=== PATIENT | female | born 1945 | race Caucasian/White ===

== ENCOUNTER 2017-04-26 15:52 | Observation (INO) | payer MEDICARE, BC ==
--- NOTE | 2017-04-26 16:36 | RAD ---
AP CHEST: Indication: Chest pain. Comparison: 09-25-06 FINDINGS: There is moderate cardiomegaly. Lungs are clear. No pleural effusion or pneumothorax is evident. No a cute osseous abnormality is evident. IMPRESSION: Stable cardiomegaly. POS: [facility]
[2017-04-26 18:02] LABS: #Basophils 0.1 thou/uL (0.0-0.2); #Eosinphils 0.1 thou/uL (0.0-0.7); #Lymphocytes 2.4 thou/uL (1.20-3.40); #Monocytes 0.9 thou/uL (0.11-0.59); %Basophils 0.4 % (0.0-1.0); %Eosinophils 0.7 % (0.0-10.0); %Lymphocytes 19.4 % (21.0-51.0); Hematocrit 36.5 % (36.0-47.0); Mean Platelet Volume 8.1 fL (7.4-10.4); Red Blood Cell (RBC) Count 4.62 mill/uL (4.20-5.40); White Blood Cell (WBC) Count 12.4 thou/uL (4.8-10.8)
[2017-04-26 18:24] LABS: Lactic Acid - Sepsis 1.8 mmol/L (0.5-2.2)
[2017-04-26 18:28] LABS: ALT (SGPT) 24 U/L (8-55); AST (SGOT) 24 U/L (5-34); Alkaline Phosphatase 60 U/L (40-150); Anion Gap 12 mmol/L (10-20); BUN (Urea Nitrogen) 14 mg/dL (9.8-20.1); Bilirubin, Total 0.3 mg/dL (0.2-1.2); CK (CPK) 51 U/L (29-168); Calc. Creatinine Clearance 0 mL/min (70-130); Calcium 8.7 mg/dL (7.8-10.44); Carbon Dioxide 26 mmol/L (23-31); Chloride 105 mmol/L (98-107); Estimated GFR-MDRD 59; Globulin 2.8 g/dL (2.4-3.5); Lipase 7 U/L (8-78); Protein, Total 6.3 g/dL (6.0-8.3)
[2017-04-26 18:31] LABS: Troponin I 0.051 ng/mL (< 0.028)
[2017-04-26 21:40] LABS: Troponin I 0.071 ng/mL (< 0.028)
[2017-04-26] MEDS ORDERED: Aspirin 325 MG TAB ONE (22:21)
[2017-04-26] MEDS ORDERED: Ondansetron ODT 4 MG TAB SL PRN (23:33)
[2017-04-26] MEDS ORDERED: Ondansetron HCl/PF 4 MG/2 ML Vial IVP PRN ×2 (23:33→23:50)
[2017-04-26] MEDS ORDERED: Acetaminophen 325 MG TAB PO PRN (23:33)
[2017-04-26] MEDS ORDERED: cloNIDine 0.1 MG TAB PO PRN (23:50)
[2017-04-26] MEDS ORDERED: Ondansetron ODT 4 MG TAB PO PRN (23:50)
[2017-04-26] MEDS ORDERED: hydrALAZINE 20 MG/ML VIAL SLOW IVP PRN (23:50)
[2017-04-26] MEDS ORDERED: Acetaminophen 500 MG TAB PO PRN (23:50)
[2017-04-27 00:23] VITALS: BMI 43.4
[2017-04-27] MEDS ORDERED: HYDROcodone/Acetaminophen 5/325 mg Tablet PO PRN (00:23)
[2017-04-27 00:44] LABS: Troponin I 0.058 ng/mL (< 0.028)
[2017-04-27] MEDS ORDERED: Carvedilol 6.25 MG TAB PO SCH ×3 (00:45→09:00)
[2017-04-27] MEDS ORDERED: Zolpidem Tartrate 5 MG TAB PO SCH ×2 (00:45→21:00)
[2017-04-27] MEDS ORDERED: hydrALAZINE 10 MG TAB PO SCH ×2 (00:45→09:00)
[2017-04-27 03:17] LABS: Hematocrit 33.5 % (36.0-47.0); Mean Platelet Volume 7.6 fL (7.4-10.4); Neutrophil 75 % (42-75); Red Blood Cell (RBC) Count 4.26 mill/uL (4.20-5.40); White Blood Cell (WBC) Count 10.3 thou/uL (4.8-10.8)
[2017-04-27 03:29] LABS: Anion Gap 10 mmol/L (10-20); BUN (Urea Nitrogen) 11 mg/dL (9.8-20.1); Calc. Creatinine Clearance 105 mL/min (70-130); Calcium 9.1 mg/dL (7.8-10.44); Carbon Dioxide 29 mmol/L (23-31); Chloride 105 mmol/L (98-107); Cholesterol 129 mg/dl (< 200 Desired); Estimated GFR-MDRD 65; LDL Cholesterol, Calculated 61 mg/dL; Magnesium 1.7 mg/dL (1.6-2.6)
--- NOTE | 2017-04-27 04:33 | HP ---
PRIMARY CARE PHYSICIAN: Dr. Jaffe PRIMARY ENVIRONMENTAL ATTORNEY: Dr. Sukumar Bahena CHIEF COMPLAINT: Chest pain, shortness of breath and fast heartbeat. HISTORY OF PRESENT ILLNESS: This is a 72-year-old female who presents to [facility] via EMS transport from [facility] complaining of chest pain, diaphoresi s and tachycardia. The patient states she had some palpitations and felt faint, presenting to the [facility]. The patient was evaluated with EKG showing supraventricular tachycardia with heart rates in the 150s. The patient received emergent adenosine with correction of the SVT with heart rates de creasing into the 70s and 80s. The patient states she has been compliant with her chronic home blood pressure medications as well as aspirin. The patient does admit to history of coronary disease, sta tus post cardiac stent placements. The patient states she is also taking Coreg chronically which she has not missed any doses. The patient does admit that she was placed on prednisone for approximatel y 30 days secondarily to suspected gout. The patient also admits that she is completing a course of antibiotics with ciprofloxacin for suspected urinary tract problems. The patient denied any specific fever, chills or exposure history or trauma. The patient denies any unilateral weakness, difficulty with speech, or visual disturbance. The patient currently states she feels fine without chest pain or shortness of breath. PAST MEDICAL HISTORY: 1. Hypertension. 2. History of renal lithiasis. 3. Morbid obesity. 4. Question of gout. 5. Gastroesophageal reflux disease. 6. Coronary artery disease status post cardiac stent placement. 7. Parathyroid adenoma status post resection. 8. History of migraines. 9. Depression. PAST SURGICAL HISTORY: 1. Status post tonsillectomy. 2. Status post parathyroidectomy. 3. Status post carpal tunnel release. 4. Status post breast biopsy. 5. Status post right carotid endarterectomy. 6. Status post lithotripsy. 7. Status post cardiac stent placement. 8. Status post cataract removal. 9. Status post back surgery. 10. Status post gastric sleeve. CURRENT MEDICATIONS: 1. Coreg 6.25 mg p.o. t.i.d. 2. Aspirin 81 mg 1 tab p.o. daily. 3. Amlodipine 10 mg 1 tab p.o. daily. 4. Cymbalta 60 mg 1 tab p.o. daily. 5. HCTZ 25 mg 1 tab p.o. daily. 6. Multivitamin 1 tab p.o. daily. 7. Protonix 40 mg p.o. b.i.d. 8. Zocor 40 mg p.o. at bedtime. 9. Ambien 10 mg p.o. at bedtime. The list may not be comprehensive and being confirmed with family members. ALLERGIES: 1. YURI inhibitors. 2. CODEINE. 3. CORN. 4. NEXIUM. FAMILY HISTORY: Father is with history of hypertension and coronary artery disease. Mother is . SOCIAL HISTORY: The Patient is . She is accompanied by her daughter in the hospital. Resid es in [place], [place]. Retired. No tobacco or illicit drug use. Occasional alcohol use. REVIEW OF SYSTEMS: The following complete review of systems was negative, unless otherwise mentioned in the HPI or below: Constitutional: Weight loss or gain, ability to conduct usual activities. Skin: Rash, itching. Eyes: Double vision, pain. ENT/Mouth: Nose bleeding, neck stiffness, pain, tenderness. Cardiovascular: Palpitations, dyspnea on exertion, orthopnea. Respiratory: Shortness of breath, wheezing, cough, hemoptysis, fever or night sweats. Gastrointestinal: Poor appetite, abdominal pain, heartburn, nausea, vomiting, constipation, or diarrhea. Genitourinary: Urgency, frequency, dysuria, nocturia. Musculoskeletal: Pain, swelling. Neurologic/Psychiatric: Anxiety, depression. Allergy/Immunologic: Skin rash, bleeding tendency. PHYSICAL EXAMINATION: VITAL SIGNS ON ADMISSION: Blood pressure 156/68, pulse 87, respiratory rate 20, temperature 98.4 deg zahida Fahrenheit, O2 saturation 97% on room air. GENERAL APPEARANCE: This is a 72-year-old female, alert and oriented x3, pleasant, convers ant, smiling, in no acute distress. HEENT: Pupils are equal, round, and reactive to light and accommodation. Extraocular muscles are in tact. No scleral icterus, no conjunctival injection. Nares patent. OP is clear. Teeth in good rep air. NECK: Supple, no cervical adenopathy, no thyromegaly, no carotid bruits, no JVD appreciated. Cervic al spine with full active and passive range of motion. No meningeal signs appreciated. CHEST: Lungs are clear to auscultation bilaterally with diminished breath sounds in the bases. CARDIOVASCULAR: S1, S2 with distant heart sounds. ABDOMEN: Obese, landmarks difficult to palpate due to patient's body habitus. No rebound or guardin g appreciated. Bowel sounds are positive in all 4 quadrants. EXTREMITIES: Warm and dry with fair turgor. No clubbing, cyanosis or asymmetric edema appreciated. Pulses palpable distally at the dorsalis pedis, posterior tibial, and popliteal arteries bilaterally . Capillary refill less than 2 seconds. NEUROLOGIC: Cranial nerves II-XII are grossly intact. No focal or lateralizing signs appreciated. PERTINENT LABORATORY AND X-RAY FINDINGS: Complete metabolic profile within normal limits. Troponin ranged between 0.051-0.071. CBC showed a white blood cell count 12.4, hemoglobin 11, hematocrit 37, MCV 79, platelet count 267 with normal differential. Portable chest x-ray dated 04/26/2017 showed no acute cardiopulmonary process. EKG dated 04/26/2017 by my interpretation shows supraventricular tac hycardia with rates in the 150s. Normal R-wave progression noted in the precordial leads. Left axis deviation. Voltage criteria consistent with left ventricular hypertrophy. ASSESSMENT AND PLAN: 1. Supraventricular tachycardia. The patient will be observed on the telemetry unit. Initial manag ement included adenosine with return to sinus mechanism with heart rates in the 70s-80s. We will con sult Cardiology Service in the a.m. for any further recommendations. We will need to obtain recent 2 D transthoracic echocardiogram done on an outpatient basis. Check TSH and magnesium level in the a.m . Resume home Coreg and monitor on the telemetry unit. 2. Elevated troponin I. Suspect demand ischemia in the context of supraventricular tachycardia. Co ntinue to monitor troponin I trend. No current evidence to suggest acute coronary syndrome. 3. Coronary artery disease, status post cardiac stent placement x1. Resume aspirin 81 mg daily. conner fasting lipid profile in the a.m. 4. Hypertension. Resume home antihypertensive regimen after confirmation of outpatient regimen. 5. Prophylaxis. Sequential compression devices while in bed. Pepcid 20 mg p.o. b.i.d. 6. Code status is full. Surrogate medical decision maker is the patient's daughter.
[2017-04-27] MEDS ORDERED: Pantoprazole 40 MG GRANULES PACKET PO SCH (09:00)
[2017-04-27] MEDS ORDERED: predniSONE 5 MG TAB PO SCH (09:00)
[2017-04-27] MEDS ORDERED: Hydrochlorothiazide 25 MG TAB PO SCH (09:00)
[2017-04-27] MEDS ORDERED: Famotidine 20 MG TAB PO SCH (09:00)
[2017-04-27] MEDS ORDERED: DULoxetine 60 MG CAP PO SCH (09:00)
[2017-04-27] MEDS ORDERED: Nystatin Powder 15 GM BOT TOP SCH ×2 (10:24→21:00)
[2017-04-27 12:24] VITALS: BP 166/79; TEMP 98.3
--- NOTE | 2017-04-27 16:50 | CON ---
DATE OF CONSULTATION: 04/27/2017 REASON FOR CONSULTATION: Elevated troponin and SVT. HISTORY OF PRESENT ILLNESS: Ms. Cohn is a very pleasant 72-year-old woman who was seen and evalu ated in the past. She has a history of CAD, status post stent placement. She recently underwent a n oninvasive stress in the last 6 months and was negative for ischemia. She states she recently had a monster drink. She also states she has had nasal drainage and has been on decongestants. She developed a tachycardia. She was found in SVT and was cardioverted with tori osine. No chest pain or pressure noted. No other associated symptoms. Her troponin was in the inde terminate range and was subsequently admitted. She is now been trending downward. PAST MEDICAL HISTORY: Hypertension, obesity, CAD status post stent placement, acid reflux, migraine headaches, obesity and renal lithiasis. PAST SURGICAL HISTORY: Tonsillectomy, parathyroidectomy, breast biopsy, carpal tunnel release, carot id endarterectomy, gastric sleeve, and back surgery. CURRENT MEDICATIONS: COREG, ASPIRIN, AMLODIPINE, CYMBALTA, HYDROCHLOROTHIAZIDE, MULTIVITAMIN, PROTON IX, ZOCOR, AMBIEN. ALLERGIES: CODEINE, NEXIUM, and YURI INHIBITOR THERAPY. SOCIAL HISTORY: No current tobacco or alcohol use. REVIEW OF SYSTEMS: Ten point review of systems is reviewed and is as above, otherwise negative. PHYSICAL EXAMINATION: GENERAL: Patient is a pleasant female who is in no acute distress. The patient appears her stated a ge. VITAL SIGNS: 149/70, pulse 72, temperature 98.3. NEUROLOGIC: The patient is alert and oriented times 3 with no focal neurologic deficits. HEENT: Sclerae without icterus. Mouth has moist mucous membranes with normal pallor. NECK: No JVD. Carotid upstroke brisk. No bruits bilaterally. LUNGS: Clear to auscultation with unlabored respirations. BACK: No scoliosis or kyphosis. CARDIAC: Regular rate and rhythm with normal S1 and S2. No S3 or S4 noted. No significant rubs, mu rmurs, thrills, or gallops noted throughout the precordium. PMI is not displaced. There is no raul ternal heave. ABDOMEN: Soft, nontender, nondistended. No peritoneal signs present. No hepatosplenomegaly. No ab normal striae. EXTREMITIES: 2+ femoral and 2+ dorsalis pedis pulses. No cyanosis, clubbing, or edema. SKIN: No gross abnormalities. PERTINENT LABS: Peak troponin 0.07. IMPRESSION: 1. Supraventricular tachycardia. 2. Elevated troponin. RECOMMENDATIONS: Ms. Cohn recently had a noninvasive stress study that was negative for ischemia . Her elevated troponin likely related to supraventricular tachycardia. At this point, would recomm end adding digoxin. From my standpoint, it would be okay to discharge home with outpatient follow up with me and with EP.
--- NOTE | 2017-04-27 17:16 | DIS ---
DATE OF ADMISSION: 04/26/2017 DATE OF DISCHARGE: 04/27/2017 CONDITION AT THE TIME OF DISCHARGE: Stable and improved. DISCHARGE DIAGNOSES: 1. Supraventricular tachycardia, aborted by adenosine. 2. Hypertension. 3. History of nephrolithiasis. 4. Morbid obesity. 5. Gastroesophageal reflux disease. 6. History of coronary artery disease, status post stent placement 5 or 6 years ago. 7. History of parathyroid adenoma status post resection. 8. Migraines. 9. Depression. DISCHARGE MEDICATIONS: Remain the same as admission medication reviewed and reconciled. Please see admission history for further details. PRIMARY CARE PHYSICIAN: Koffi Saavedra CONSULTATION INHOUSE: Include Cardiology, Dr. Bahena. PROCEDURES: None. HISTORY OF PRESENTING ILLNESS: Ms. Cohn is a very pleasant 72-year-old female with past medical history of coronary artery disease and hypertension who presented to the emergency room with complain ts of palpitations and was found to have SVT with heart rate in the 150s. She received emergent tori osine with correction of SVT and was admitted under observation status for further management and car e. Cardiology was consulted. Please see admission history and physical for further details. HOSPITAL COURSE: The patient remained rather asymptomatic throughout the rest of her hospitalization and did not have any recurrence of the symptoms. Dr. Bahena saw the patient and actually release d the patient to go home as no invasive intervention was planned for now. She needs to follow up wit h him as an outpatient. According to Dr. Bahena, she had a normal stress test just few months ago . She did have some mildly elevated troponin, which was thought secondary to the SVT. Dr. Bahena will setup outpatient electrophysiology followup. The patient was given all this information and ve rbalized understanding and is eager to go home. She was seen and examined prior to discharge. PHYSICAL EXAMINATION: VITAL SIGNS: Include temperature 98.3, pulse of 76, respirations 18, saturating 94% on room air, blo od pressure 166/79. GENERAL: No acute distress. CHEST: Clear to auscultation bilaterally. HEART: Rate and rhythm is regular. No edema. LABORATORY EXAMINATION: CBC shows WBC 10.3, platelet count of 241, hemoglobin 10.5. Serum chemistri es unremarkable, troponin 0.071, then 0.058 than 0.050. TSH normal. Lipid panel normal. She will follow with the primary care physician and Dr. Bahena as an outpatient. Discharge plan w as discussed with the patient who verbalized understanding.
[2017-04-27] MEDS ORDERED: Atorvastatin Calcium 20 MG TAB PO SCH (21:00)
--- NOTE | 2017-05-06 14:37 | EKG ---
Test Reason : Blood Pressure : / mmHG Vent. Rate : 088 BPM Atrial Rate : 088 BPM P-R Int : 172 ms QRS Dur : 076 ms QT Int : 380 ms P-R-T Axes : 063 -02 069 degrees QTc Int : 459 ms Normal sinus rhythm Left axis deviation Normal ECG Confirmed by JEET BRANDON DO ([id number]), desk editor KARL GALLARDO ([id number]) on 05/06/2017 2:37:07 PM Referred By: Confirmed By:JEET BRANDON DO
== END 2017-04-27 13:20 | disposition home or self-care (01) ==
LOC: ERS 15:52 → 2SW 23:34
PROVIDERS: ADMIT Family Medicine; ATTEND Family Medicine
DX: I47.1 Supraventricular tachycardia (principal); I10 Essential (primary) hypertension; E66.01 Morbid (severe) obesity due to excess calories; K21.9 Gastro-esophageal reflux disease without esophagitis; I25.10 Atherosclerotic heart disease of native coronary artery without angina pectoris; G43.909 Migraine, unspecified, not intractable, without status migrainosus; F32.9 Major depressive disorder, single episode, unspecified; Z90.89 Acquired absence of other organs; E89.2 Postprocedural hypoparathyroidism; R77.8 Other specified abnormalities of plasma proteins; Z68.41 Body mass index [BMI] 40.0-44.9, adult; Z79.52 Long term (current) use of systemic steroids; Z79.899 Other long term (current) drug therapy; Z88.5 Allergy status to narcotic agent; Z88.8 Allergy status to other drugs, medicaments and biological substances; Z91.018 Allergy to other foods; Z88.2 Allergy status to sulfonamides; Z91.02 Food additives allergy status; Z91.040 Latex allergy status; Z91.011 Allergy to milk products; Z98.84 Bariatric surgery status; Z98.49 Cataract extraction status, unspecified eye; Z95.818 Presence of other cardiac implants and grafts; Z98.890 Other specified postprocedural states; Z87.442 Personal history of urinary calculi; Z82.49 Family history of ischemic heart disease and other diseases of the circulatory system
CPT/HCPCS: 71010; 80048; 80053; 80061; 82550; 82553; 83605; 83690; 83735; 84443; 84484 ×4; 85007; 85025; 85027; 93005; 99285; G0378; 36415

== ENCOUNTER 2017-10-31 12:06 | Outpatient (CLI) | payer MEDICARE, BC | END 2017-10-31 12:07 | disposition home or self-care (01) | LOC: BICMRI 12:06 | PROVIDERS: ATTEND Psychiatry & Neurology Neurology | DX: G31.1 Senile degeneration of brain, not elsewhere classified (principal); I67.82 Cerebral ischemia | CPT/HCPCS: 70553; 82565 ==

== ENCOUNTER 2018-01-09 13:58 | Outpatient (CLI) | payer MEDICARE, BC | END 2018-01-09 13:59 | disposition home or self-care (01) | LOC: BICMAMMO 13:58 | PROVIDERS: ATTEND Internal Medicine | DX: Z12.31 Encounter for screening mammogram for malignant neoplasm of breast (principal) | CPT/HCPCS: 77063; 77067 ==

== ENCOUNTER 2018-02-01 08:08 | Outpatient (CLI) | payer MEDICARE, BC | END 2018-02-01 08:09 | disposition home or self-care (01) | LOC: BICRAD 08:08 | PROVIDERS: ATTEND Allergy & Immunology Allergy | DX: M71.551 Other bursitis, not elsewhere classified, right hip (principal); M71.552 Other bursitis, not elsewhere classified, left hip; M71.811 Other specified bursopathies, right shoulder; M06.9 Rheumatoid arthritis, unspecified; M19.032 Primary osteoarthritis, left wrist; M19.041 Primary osteoarthritis, right hand; Z79.899 Other long term (current) drug therapy ==

== ENCOUNTER 2018-02-14 10:59 | Outpatient (CLI) | payer MEDICARE, BC ==
--- NOTE | 2018-02-14 11:45 | RAD ---
LEFT KNEE TWO VIEWS: History: Left knee pain. FINDINGS: Degenerative changes are present, most prominent in the patellofemoral compartment. Chondrocalcinosis is present. No fracture or dislocation or bony destruction is identified. IMPRESSION: Left knee osteoarthritis. POS: [facility]
--- NOTE | 2018-02-14 11:48 | RAD ---
LEFT SHOULDER THREE VIEWS: History: Injury. Pain. FINDINGS: No fracture. No malalignment. Mild widening of the acromioclavicular joint. IMPRESSION: 1. No acute fracture or malalignment. 2. Mild widening of the acromioclavicular joint likely sequella of chronic distal clavicular osteolys is, an over use syndrome. POS: [facility]
--- NOTE | 2018-02-14 11:52 | RAD ---
RIGHT KNEE TWO VIEWS: History: Right knee pain. FINDINGS: Degenerative changes are seen manifested by osteophyte formation and joint space narrowing predominat andreina in the patellofemoral and medial tibiofemoral compartments. Chondrocalcinosis is present. No frac ture, dislocation, or bony destruction is identified. IMPRESSION: Right knee osteoarthritis. POS: [facility]
--- NOTE | 2018-02-14 14:22 | RAD ---
RIGHT SHOULDER 3 VIEWS: Date: 02/14/18 HISTORY: Pain. COMPARISON: None. FINDINGS: No acute fracture or malalignment. There is ossification of the superior acromioclavicular ligament. There are subcortical cysts of the greater tuberosity. Visualized ribs are unremarkable. IMPRESSION: 1. Moderate degenerative changes of acromioclavicular joint with ossification of the superior acromi oclavicular ligament can be source of patient's pain. 2 Subcortical cysts of the greater tuberosity footplate suggests rotator cuff arthropathy. POS: [facility]
== END 2018-02-14 11:00 | disposition home or self-care (01) ==
LOC: BICRAD 10:59
PROVIDERS: ATTEND Allergy & Immunology
DX: M25.561 Pain in right knee (principal); M25.562 Pain in left knee; M25.511 Pain in right shoulder; M25.512 Pain in left shoulder; M17.0 Bilateral primary osteoarthritis of knee; M19.011 Primary osteoarthritis, right shoulder

== ENCOUNTER 2018-03-16 08:55 | Outpatient (CLI) | payer MEDICARE, BC ==
--- NOTE | 2018-03-16 10:20 | RAD ---
RADIOGRAPH ABDOMEN TWO VIEWS: 03/16/2018 HISTORY: A 73-year-old female with other intestinal obstruction, unspecified as to partial versus complete obstruction. The patient states that she swallowed an intestinal capsule more than one week ago, which has not yet passed. FINDINGS: There are surgical clips both to the right and to the left in the abdomen. There is no evidence of p neumoperitoneum. There are no differential air-fluid levels. There are multiple borderline dilated air-filled small bowel loops scattered throughout the abdominal cavity. There is some gas in a nondi lated colon. There is a moderate amount of colonic stool. No other radiopaque foreign body is visua lized. IMPRESSION: 1. The capsule is not present. 2. nonspecific bowel gas pattern 3. evidence of prior abdominal surgeries POS: [facility]
== END 2018-03-16 08:56 | disposition home or self-care (01) ==
LOC: BICRAD 08:55
PROVIDERS: ATTEND Internal Medicine Gastroenterology
DX: K56.699 Other intestinal obstruction unspecified as to partial versus complete obstruction (principal); Z98.890 Other specified postprocedural states
CPT/HCPCS: 74019

== ENCOUNTER 2018-05-18 22:05 | Observation (INO) | payer MEDICARE, BC ==
[2018-05-18] MEDS ORDERED: Nitroglycerin 2% Ointment 1 INCH/1 GM Packet ONE (22:45)
[2018-05-18] MEDS ORDERED: Furosemide 40 MG/4 ML VIAL ONE (22:45)
[2018-05-18] MEDS ORDERED: Aspirin Chewable 81 MG TAB ONE (22:50)
[2018-05-18 22:52] LABS: #Basophils 0.1 thou/uL (0.0-0.2); #Eosinphils 0.2 thou/uL (0.0-0.7); #Lymphocytes 2.4 thou/uL (1.20-3.40); #Monocytes 0.9 thou/uL (0.11-0.59); #Neutrophils 5.8 thou/uL (1.40-6.50); %Basophils 0.7 % (0.0-1.0); %Eosinophils 2.1 % (0.0-10.0); %Lymphocytes 25.8 % (21.0-51.0); %Monocytes 9.8 % (0.0-10.0); %Neutrophils 61.6 % (42.0-75.0); Hemoglobin 12.6 g/dL (12.0-16.0); Mean Corpuscular HGB CONC 33.1 g/dL (32.0-36.0); Mean Corpuscular Hemoglobin 30.9 pg (27.0-31.0); Mean Corpuscular Volume 93.5 fL (78.0-98.0); Mean Platelet Volume 8.2 fL (7.4-10.4); Platelet Count 205 thou/uL (130-400); RBC Distribution Width 13.4 % (11.5-14.5); Red Blood Cell (RBC) Count 4.07 mill/uL (4.20-5.40); White Blood Cell (WBC) Count 9.4 thou/uL (4.8-10.8)
--- NOTE | 2018-05-18 23:02 | RAD ---
FRONTAL VIEW CHEST: 05/18/18 COMPARISON: 04/26/17. INDICATION: Edema, diaphoresis, dizziness, and nausea. FINDINGS: The cardiac silhouette is prominent, stable. No consolidation, effusion or discrete pneumothorax. The re are leads overlying the chest limiting visualization. IMPRESSION: Enlarged cardiac silhouette. No lobar consolidation. POS: [facility]
[2018-05-18 23:13] LABS: ALT (SGPT) 12 U/L (8-55); AST (SGOT) 14 U/L (5-34); Albumin 3.4 g/dL (3.4-4.8); Alkaline Phosphatase 58 U/L (40-150); Anion Gap 10 mmol/L (10-20); BUN (Urea Nitrogen) 16 mg/dL (9.8-20.1); Bilirubin, Total 0.3 mg/dL (0.2-1.2); CK (CPK) 53 U/L (29-168); Calc. Creatinine Clearance 0 mL/min (70-130); Calcium 8.7 mg/dL (7.8-10.44); Carbon Dioxide 29 mmol/L (23-31); Chloride 102 mmol/L (98-107); Estimated GFR-MDRD 61; Globulin 2.6 g/dL (2.4-3.5); Glucose 108 mg/dL (83-110); Lipase 11 U/L (8-78); Potassium 3.4 mmol/L (3.5-5.1); Sodium 138 mmol/L (136-145)
[2018-05-18] MEDS ORDERED: Metoclopramide HCl 10 MG/2 ML VIAL ONE (23:43)
[2018-05-18] MEDS ORDERED: diphenhydrAMINE 50 MG/ML VIAL ONE (23:43)
[2018-05-18] MEDS ORDERED: Piperacillin/Tazobactam 4.5 GM VIAL ONE (23:43)
[2018-05-19] MEDS ORDERED: Acetaminophen 325 MG TAB ONE (02:03)
[2018-05-19 02:38] LABS: Troponin I Less than 0.010 ng/mL (< 0.028)
[2018-05-19 06:08] LABS: Troponin I 0.011 ng/mL (< 0.028)
--- NOTE | 2018-05-19 10:00 | PDOC.EVN ---
Event Note - Event Note Event Note: [facility] #[id number] [facility] DICTATED #[id number]
--- NOTE | 2018-05-19 15:59 | HP ---
CHIEF COMPLAINT: Chest pain and lower extremity cellulitis. HISTORY OF PRESENT ILLNESS: This is a 73-year-old female who has been presented to the ER because of lower extremity discomfort as well as some chest pain. The patient states that everything started approximately a day ago and the cellulitis started approximately 2 to 3 days ago. The patient denies any nausea, vomiting, diarrhea, constipation, fevers, chills, or shortness of breath. The patient states that she otherwise has been compliant with all of her medication. Has a past medical history of hypertension, depression, hyperlipidemia, and heart failure. The patient states that she could not handle the pain, so came to the ER. No other associated symptoms or complaints. No alleviating or aggravating factors. The patient is seen and examined in the ER. No family at bedside. All questions answered. REVIEW OF SYSTEMS: All systems reviewed, pertinent positives in HPI, otherwise negative. ALLERGIES: PLEASE SEE LIST ON JUL. HOME MEDICATIONS: See JUL. PAST MEDICAL HISTORY: Hypertension, hyperlipidemia, heart failure. FAMILY HISTORY: Noncontributory. SOCIAL HISTORY: Denies any smoking or drinking. PHYSICAL EXAMINATION: VITAL SIGNS: Blood pressure 112/88, respiratory rate of 18, temperature of 98, and O2 saturation 98%. GENERAL: The patient is lying in bed comfortably with the CPAP machine on. HEENT: Pupils are equal, round, react to light and accommodation. Extraocular muscles intact. Normocephalic, atraumatic. NECK: Supple. Nontender. Mobile thyroid noted. CARDIOVASCULAR: Regular rate and rhythm. S1, S2. No murmurs, rubs, or gallops appreciated. PULMONARY: Clear to auscultation bilaterally. No respiratory distress. ABDOMEN: Positive bowel sounds. Soft, nontender. EXTREMITIES: 2+ peripheral pulses. 1+ pitting edema in bilateral lower extremities. Cellulitis in bilateral lower extremities, tracking up to the mid go region. Erythema noted bilaterally as well as some warmth on both legs. LABORATORY DATA: CBC normal. BMP normal. ASSESSMENT: 1. Cellulitis. 2. Chest pain. 3. Sleep apnea. 4. Hypertension. 5. Lower extremity edema. 6. Hyperlipidemia. PLAN: At this point, I will bring the patient to the hospital service, start the patient on antibiotics as well as rule out ACS. If the patient is feeling well over the morning and once the ACS has been ruled out, we will probably switch over to oral antibiotics with Augmentin and discharge with a 7-day course, have the patient follow up outpatient with her PCP for further management and care if the patient is feeling well at the point of time of discharge. Case and plan discussed with the patient at length. She understands and agrees to this plan. Job ID: [id number]
--- NOTE | 2018-05-20 03:14 | DIS ---
DATE OF ADMISSION: 05/19/2018 DATE OF DISCHARGE: 05/19/2018 ADMITTING DIAGNOSES: 1. Chest pain. 2. Cellulitis. 3. Edema. 4. Heart failure. 5. Hyperlipidemia. 6. Hypertension. DISCHARGE DIAGNOSES: 1. Chest pain, resolved, noncardiac. 2. Cellulitis, improving. 3. Edema. 4. Heart failure. 5. Hypertension. HOSPITAL COURSE: A 73-year-old female who was seen in the ER earlier the night prior admitted past midnight to the Hospital Service team due to cellulitis of lower extremity swelling associated with chest discomfort. Patient had ACS ruled out. Received IV antibiotics 1 dose in the ER and felt significantly better. Patient's WBC count was normal. Was afebrile and feeling well. Cellulitis had tracked down significantly lower than what it was the night prior which was noted by demarcation of her skin. Case and plan discussed the patient at length. Patient was told that she could have oral antibiotics outpatient and follow up with primary care for further management and care. DISPOSITION: Home. FOLLOWUP: Follow up with PCP in one week. MEDICATIONS: Resumed Augmentin, prescription given. Case and plan discussed with patient at length. She understood and agreed to this plan. Job ID: [id number]
--- NOTE | 2018-05-31 17:03 | EKG ---
Test Reason : Blood Pressure : / mmHG Vent. Rate : 075 BPM Atrial Rate : 075 BPM P-R Int : 172 ms QRS Dur : 072 ms QT Int : 406 ms P-R-T Axes : 054 -08 055 degrees QTc Int : 453 ms Normal sinus rhythm with sinus arrhythmia Septal infarct , age undetermined Abnormal ECG Confirmed by ALMA FRAZIER, JEET ([id number]), high speed printer operator KARL GALLARDO ([id number]) on 05/31/2018 5:02:45 PM Referred By: Confirmed By:JEET MARQUEZ MD
== END 2018-05-19 12:05 | disposition home or self-care (01) ==
LOC: ERS 22:05 → ERHOLD 22:10
PROVIDERS: ADMIT Internal Medicine; ATTEND Internal Medicine
DX: R07.89 Other chest pain (principal); L03.116 Cellulitis of left lower limb; L03.115 Cellulitis of right lower limb; I11.0 Hypertensive heart disease with heart failure; I50.9 Heart failure, unspecified; E78.5 Hyperlipidemia, unspecified; G47.30 Sleep apnea, unspecified; F32.9 Major depressive disorder, single episode, unspecified; Z88.8 Allergy status to other drugs, medicaments and biological substances; Z88.5 Allergy status to narcotic agent; Z91.018 Allergy to other foods; Z88.2 Allergy status to sulfonamides; Z91.040 Latex allergy status; Z79.52 Long term (current) use of systemic steroids; Z79.2 Long term (current) use of antibiotics; Z79.899 Other long term (current) drug therapy
CPT/HCPCS: 71045; 80053; 82550; 83690; 83880; 84484 ×3; 85025; 93005; 96365; 96367; 96375; 99285; G0378; 36415; J1200; J1940; J2543; J2765; J3370

== ENCOUNTER 2018-06-06 14:22 | Outpatient (CLI) | payer MEDICARE, BC ==
[~2018-06-06 14:22] MED LIST: Iopamidol 370 76% 100 ML VIAL ONE
--- NOTE | 2018-06-06 15:36 | CT ---
CONTRAST ENHANCED CT IMAGES OF THE ABDOMEN AND PELVIS 06/06/18 HISTORY: Chronic diarrhea. Contrast enhanced CT images of the abdomen and pelvis is obtained after the administration of IV and oral contrast. Images demonstrate extensive mitral annular calcifications. Atherosclerotic calcifications seen in the abdominal aorta. The patient has had gastric staple lines present. The lung bases are unremarkable. No evidence of free intraperitoneal air seen. The liver, and spleen are unremarkable. The gallbladder has been surgically removed. Adrenal glands and pancreas are unremarkable. Bilateral renal cortical cysts seen, larger on the left than the right. Small nonobstructing mid and lower pole left renal calculi also seen. Atherosclerotic calcifications seen in the abdominal aorta and iliac arteries. There is a small umbilical hernia. Bilateral renal arteries calcified plaque is seen. No dilated loops of small bowel or colon seen. IMPRESSION: 1. Gastric stapling with surgical changes. 2. Bilateral nonobstructing renal calculi. 3. Renal cortical cysts. 4. Multilevel lumbar disc degenerative changes. 5. Aortic and renal artery calcifications. POS: [facility]
== END 2018-06-06 14:23 | disposition home or self-care (01) ==
LOC: BICCT 14:22
PROVIDERS: ATTEND Physician Assistant Medical
DX: K56.699 Other intestinal obstruction unspecified as to partial versus complete obstruction (principal); D50.0 Iron deficiency anemia secondary to blood loss (chronic); K52.9 Noninfective gastroenteritis and colitis, unspecified; R11.2 Nausea with vomiting, unspecified; I70.1 Atherosclerosis of renal artery; N28.1 Cyst of kidney, acquired; N20.0 Calculus of kidney; M47.816 Spondylosis without myelopathy or radiculopathy, lumbar region; Z98.890 Other specified postprocedural states
CPT/HCPCS: 74177; Q9967

== ENCOUNTER 2018-12-11 13:58 | Outpatient (CLI) | payer MEDICARE, BC ==
--- NOTE | 2018-12-11 14:52 | RAD ---
XR Foot Lt 3 View STANDARD History: Primary generalized osteoarthritis Comparison: None. Findings: No acute fracture or malalignment. Mild interphalangeal joint space narrowing. Large planta r calcaneal spur as well as ossification along the lateral plantar longitudinal ligament. Mild soft tissue swelling. Impression: No acute osseous abnormality. Chronic findings.
--- NOTE | 2018-12-11 14:58 | RAD ---
XR Foot Rt 3 View STANDARD History: Generalized osteoarthritis Comparison: None. Findings: No acute fracture or malalignment. Large talar neck spur. Bones are demineralized. There are calcifications along the short plantar ligament and long plantar ligament. Small plantar ca lcaneal spur. Degenerative changes of the ankle joint. Mild midfoot degenerative changes. Impression: Chronic findings. No acute osseous abnormality.
--- NOTE | 2018-12-11 15:17 | RAD ---
RIGHT ANKLE THREE VIEWS: 12/11/18 HISTORY: Primarily generalized osteoarthritis, right ankle pain. FINDINGS/IMPRESSION: No fracture, dislocation or bony destruction is seen. A small plantar calcaneal spur is present. POS: [facility]
--- NOTE | 2018-12-11 15:18 | RAD ---
LEFT ANKLE THREE VIEWS: 12/11/18 HISTORY: Primarily generalized osteoarthritis. Left ankle pain. FINDINGS/IMPRESSION: No fracture, dislocation or bony destructions seen. The ankle mortise is maintained. There is small p lantar calcaneal spurs present. POS: [facility]
--- NOTE | 2018-12-11 15:21 | RAD ---
LEFT SHOULDER THREE VIEWS: 12/11/18 HISTORY: Other specified bursopathies, left shoulder. Left shoulder pain. Comparison made with exam of 02/14/18. Mild widening of the acromioclavicular joint is stable. 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 No acute fracture, dislocation, or bony destruction is seen. IMPRESSION: Stable exam. POS: [facility]
--- NOTE | 2018-12-11 15:23 | RAD ---
RIGHT SHOULDER THREE VIEWS: HISTORY: Right shoulder pain. Other specific bursopathies, right shoulder. COMPARISON: 02/14/2018 FINDINGS: Moderate degenerative changes of the acromioclavicular joint are again seen. There is ossification o f the superior acromioclavicular ligament. Changes of rotator cuff arthropathy again seen, suggested by subcortical cysts or the greater tuberos ity footplate. No acute fracture, dislocation, or bony destruction is seen. IMPRESSION: Stable examination. POS: [facility]
== END 2018-12-11 13:59 | disposition home or self-care (01) ==
LOC: BICRAD 13:58
PROVIDERS: ATTEND Allergy & Immunology Allergy
DX: M19.011 Primary osteoarthritis, right shoulder (principal); M19.012 Primary osteoarthritis, left shoulder; M19.071 Primary osteoarthritis, right ankle and foot; M19.072 Primary osteoarthritis, left ankle and foot; M71.811 Other specified bursopathies, right shoulder; M71.812 Other specified bursopathies, left shoulder; M71.551 Other bursitis, not elsewhere classified, right hip; M71.552 Other bursitis, not elsewhere classified, left hip; M06.9 Rheumatoid arthritis, unspecified; R11.2 Nausea with vomiting, unspecified; Z79.899 Other long term (current) drug therapy

== ENCOUNTER 2019-01-09 10:01 | Outpatient (CLI) | payer MEDICARE, BC | END 2019-01-09 10:02 | disposition home or self-care (01) | PROVIDERS: ATTEND Physician Assistant Medical | DX: R13.10 Dysphagia, unspecified (principal); R63.3 Feeding difficulties | CPT/HCPCS: 74230 ==

== ENCOUNTER 2019-03-12 18:22 | Emergency (ER) | payer MEDICARE, BC ==
[2019-03-12] MEDS ORDERED: Morphine 4 MG/ML VIAL ONE (18:46)
[2019-03-12] MEDS ORDERED: Ondansetron PF 4 MG/2 ML Vial ONE (18:46)
[2019-03-12 19:21] LABS: #Eosinphils 0.1 thou/uL (0.0-0.7); #Lymphocytes 1.5 thou/uL (1.20-3.40); #Monocytes 0.7 thou/uL (0.11-0.59); #Neutrophils 6.2 thou/uL (1.40-6.50); %Basophils 0.4 % (0.0-1.0); %Eosinophils 1.6 % (0.0-10.0); %Lymphocytes 17.9 % (21.0-51.0); %Neutrophils 72.2 % (42.0-75.0); Hemoglobin 11.7 g/dL (12.0-16.0); Mean Corpuscular HGB CONC 32.8 g/dL (32.0-36.0); Mean Corpuscular Hemoglobin 30.9 pg (27.0-31.0); Mean Platelet Volume 8.2 fL (7.4-10.4); Platelet Count 223 thou/uL (130-400); RBC Distribution Width 13.9 % (11.5-14.5); White Blood Cell (WBC) Count 8.6 thou/uL (4.8-10.8)
[2019-03-12 19:46] LABS: ALT (SGPT) 9 U/L (8-55); AST (SGOT) 19 U/L (5-34); Albumin 3.5 g/dL (3.4-4.8); Alkaline Phosphatase 66 U/L (40-110); Anion Gap 11 mmol/L (10-20); BUN (Urea Nitrogen) 11 mg/dL (9.8-20.1); Bilirubin, Total 0.2 mg/dL (0.2-1.2); Calc. Creatinine Clearance 0 mL/min (70-130); Calcium 9.2 mg/dL (7.8-10.44); Carbon Dioxide 27 mmol/L (23-31); Chloride 105 mmol/L (98-107); Estimated GFR-MDRD 67; Globulin 2.7 g/dL (2.4-3.5); Glucose 96 mg/dL (83-110); Lipase 7 U/L (8-78); Potassium 4.3 mmol/L (3.5-5.1); Protein, Total 6.2 g/dL (6.0-8.3); Sodium 139 mmol/L (136-145)
[2019-03-12 20:46] LABS: Bilirubin Small (Negative); Blood, Urine Negative (Negative); Glucose, Urine (Dipstick) 100 mg/dL (Negative); Leukocyte Trace (Negative); Nitrite Positive (Negative); Protein, Urine (Dipstick) 30 mg/dL (Neg-Trace)
[2019-03-12 20:47] LABS: Clarity Hazy (Clear)
[2019-03-12 20:51] LABS: RBC/HPF 0-3 HPF (0-3)
[2019-03-12 21:00] LABS: Bacteria/HPF 4+ HPF (None Seen)
[2019-03-12] MEDS ORDERED: cefTRIAXone\\ROCEPHIN 1 GM VIAL ONE (21:06)
== END 2019-03-12 22:05 | disposition home or self-care (01) ==
LOC: ERS 18:22
DX: N39.0 Urinary tract infection, site not specified (principal); I10 Essential (primary) hypertension; Z79.899 Other long term (current) drug therapy; Z79.82 Long term (current) use of aspirin
CPT/HCPCS: 80053; 81003; 81015; 83690; 85025; 93005; 96361; 96365; 96375; J0696; J2270; J2405

== ENCOUNTER 2019-03-14 13:54 | Inpatient (IN) | payer MEDICARE, BC ==
[~2019-03-14 13:54] MED LIST changes: +ISOVUE-370 76%-LOCM 1 ML ONE; -Iopamidol 370 76% 100 ML VIAL ONE
[2019-03-14] MEDS ORDERED: Ondansetron PF 4 MG/2 ML Vial ONE (14:31)
[2019-03-14 14:37] LABS: #Eosinphils 0.1 thou/uL (0.0-0.7); #Lymphocytes 1.4 thou/uL (1.20-3.40); #Monocytes 0.7 thou/uL (0.11-0.59); #Neutrophils 8.6 thou/uL (1.40-6.50); %Basophils 0.1 % (0.0-1.0); %Eosinophils 0.9 % (0.0-10.0); %Lymphocytes 13.1 % (21.0-51.0); %Monocytes 6.5 % (0.0-10.0); %Neutrophils 79.4 % (42.0-75.0); Hemoglobin 12.9 g/dL (12.0-16.0); Mean Corpuscular HGB CONC 32.7 g/dL (32.0-36.0); Mean Corpuscular Hemoglobin 30.9 pg (27.0-31.0); Mean Corpuscular Volume 94.6 fL (78.0-98.0); Mean Platelet Volume 7.9 fL (7.4-10.4); Platelet Count 240 thou/uL (130-400); RBC Distribution Width 13.9 % (11.5-14.5); Red Blood Cell (RBC) Count 4.17 mill/uL (4.20-5.40); White Blood Cell (WBC) Count 10.8 thou/uL (4.8-10.8)
[2019-03-14] MEDS ORDERED: Morphine 4 MG/ML VIAL ONE ×2 (14:52→17:11)
[2019-03-14] MEDS ORDERED: cefTRIAXone\\ROCEPHIN 1 GM VIAL ONE (14:52)
[2019-03-14 14:58] LABS: ALT (SGPT) 8 U/L (8-55); AST (SGOT) 14 U/L (5-34); Albumin 3.7 g/dL (3.4-4.8); Alkaline Phosphatase 75 U/L (40-110); Anion Gap 15 mmol/L (10-20); BUN (Urea Nitrogen) 10 mg/dL (9.8-20.1); Bilirubin, Total 0.3 mg/dL (0.2-1.2); CK (CPK) 35 U/L (29-168); Calc. Creatinine Clearance 0 mL/min (70-130); Calcium 9.1 mg/dL (7.8-10.44); Carbon Dioxide 24 mmol/L (23-31); Chloride 105 mmol/L (98-107); Estimated GFR-MDRD 72; Globulin 2.2 g/dL (2.4-3.5); Glucose 137 mg/dL (83-110); Lipase 8 U/L (8-78); Potassium 3.8 mmol/L (3.5-5.1); Protein, Total 5.9 g/dL (6.0-8.3); Sodium 140 mmol/L (136-145)
--- NOTE | 2019-03-14 15:31 | CT ---
CT ABDOMEN AND PELVIS WITH IV CONTRAST 03/14/2019 CLINICAL INFORMATION: Abdominal pain and tachycardia. Nausea and vomiting. COMPARISON: 06/06/2018 Technique: Multiple contiguous axial CT images are obtained through the abdomen and pelvis with IV contrast. Cor onal reformatted images are provided. FINDINGS: Lower Chest: Calcified mitral valve annulus is again present. Minimal atelectasis is present at the l eft lung base. There is calcified granulomata right lung base. Vessels: Vascular calcifications are seen in the abdominal aorta and involving the iliac arteries. Abdomen: Portal vein:Patent Gallbladder: Surgically absent. Liver: Small subcentimeter too small to characterize hypodense lesion is again seen in the inferior a spect posterior segment right hepatic lobe with a punctate low-density focus seen in the anterior aspect lateral segment left hepatic lobe also stable. Spleen: within normal limits. Pancreas: within normal limits. Adrenals: within normal limits. Kidneys: Subcentimeter too small to characterize hypodense lesions in each kidney are again seen with stable inferior pole left renal cysts again noted. There are stable nonobstructing bilateral renal calculi. Bowel: Postsurgical changes of the stomach are again noted. Dilated fluid-filled loops of small bowel are seen in the abdomen measuring up to 3.9 cm. There is edema within the adjacent mesentery. There is feculent type material and loops of small bowel just distal to the dilated fluid-filled loop s of small bowel. This could be related to final bezoar and developing partial small bowel obstruction. No bowel wall thickening is seen. There is no free intraperitoneal gas or fluid. Colonic diverticulosis is present. Appendix: Not visualized Peritoneum: No ascites or free air; no fluid collection. Mesentery and Retroperitoneum: Mildly prominent lymph node is seen within the mesentery at the level of the edematous changes measuring 1.3 cm in short axis dimension. Abdominal Wall: Small fat-containing umbilical hernia is noted. Pelvis: Reproductive Organs: Evidence of hysterectomy. Pelvis within normal limits. Bladder: Decompressed and not evaluated. Bones: Hemangioma is seen in the L3 vertebral body with degenerative changes again seen within the lawrence mbar spine. There is bilateral hip osteoarthritis. IMPRESSION: 1. Developing partial small bowel obstruction with dilated loops of fluid-filled small bowel seen in the midabdomen measuring 3.9 cm. Just distal to loops of dilated fluid-filled small bowel is feculent type material within loops of small bowel which could be related to phytobezoar. Edema is se en within the mesentery at the level of the dilated loops of small bowel with associated mildly enlarged lymph nodes within the mesentery as well. 2. Nonobstructing bilateral renal calculi and bilateral renal cysts. 3. Postsurgical changes related to cholecystectomy and hysterectomy. 4. Postsurgical changes of the stomach small hiatal hernia.
[2019-03-14 15:58] LABS: Bilirubin Negative (Negative); Blood, Urine Negative (Negative); Clarity Clear (Clear); Glucose, Urine (Dipstick) Normal (Negative); Leukocyte Negative Leu/uL (Negative); Nitrite Negative (Negative); Protein, Urine (Dipstick) Negative (Neg-Trace); Urobilinogen Normal mg/dL (Less than 2)
[2019-03-14] MEDS ORDERED: Lidocaine Viscous Sol 2% 15 ml UD Cup ONE (16:40)
[2019-03-14] MEDS ORDERED: Morphine 4 MG/ML VIAL SLOW IVP PRN (17:07)
[2019-03-14] MEDS ORDERED: hydrALAZINE 20 MG/ML VIAL SLOW IVP PRN (17:07)
[2019-03-14] MEDS ORDERED: Acetaminophen 1,000 MG in Premix Bag 1 BAG IVPB PRN (17:09)
--- NOTE | 2019-03-14 17:32 | RAD ---
EXAM: XR Abdomen 1 View/KUB DATE: 03/14/2019 5:05 PM INDICATION: NG tube placement COMPARISON: CT abdomen and pelvis with contrast dated March 14, 2019 at 3:06 PM. FINDING: Dilated small bowel loops within the central abdomen are stable. Gastric catheter projects in the region of the proximal gastric body. There is postprocedural change of a gastroplasty. Lung bases are clear. IMPRESSION:Gastric catheter as above.
[2019-03-14] MEDS: Lactated Ringer's 1,000 ML IV SCH (19:57)
[2019-03-14] MEDS: Carvedilol 6.25 MG TAB PER TUBE SCH (19:57)
[2019-03-14] MEDS: Famotidine/PF 20 mg/2ml Vial SLOW IVP SCH (19:58)
[2019-03-14] MEDS: Enoxaparin Sodium 40 MG/0.4 ML SYRINGE SC SCH (19:59)
[2019-03-14 20:48] VITALS: BMI 34.1
[2019-03-14] MEDS ORDERED: Carvedilol 6.25 MG TAB PO SCH (21:00)
[2019-03-14] MEDS: Ondansetron PF 4 MG/2 ML Vial IVP PRN (23:06)
[2019-03-14] MEDS: Ketorolac Tromethamine 30 MG/ML VIAL IVP PRN (23:06)
[2019-03-14] MEDS: Morphine 2 MG/ML SYRINGE SLOW IVP PRN (23:58)
[2019-03-15] MEDS: Lactated Ringer's 1,000 ML IV SCH ×2 (00:16→11:19)
[2019-03-15 05:43] LABS: #Eosinphils 0.2 thou/uL (0.0-0.7); #Monocytes 0.9 thou/uL (0.11-0.59); %Basophils 0.2 % (0.0-1.0); %Eosinophils 2.2 % (0.0-10.0); %Lymphocytes 21.5 % (21.0-51.0); %Neutrophils 66.2 % (42.0-75.0); Hemoglobin 11.6 g/dL (12.0-16.0); Mean Corpuscular HGB CONC 32.5 g/dL (32.0-36.0); Mean Corpuscular Hemoglobin 31.1 pg (27.0-31.0); Mean Corpuscular Volume 95.7 fL (78.0-98.0); Platelet Count 216 thou/uL (130-400); RBC Distribution Width 13.9 % (11.5-14.5); Red Blood Cell (RBC) Count 3.74 mill/uL (4.20-5.40); White Blood Cell (WBC) Count 9.1 thou/uL (4.8-10.8)
[2019-03-15 06:02] LABS: Anion Gap 11 mmol/L (10-20); BUN (Urea Nitrogen) 9 mg/dL (9.8-20.1); Calc. Creatinine Clearance 98 mL/min (70-130); Calcium 8.5 mg/dL (7.8-10.44); Carbon Dioxide 27 mmol/L (23-31); Chloride 106 mmol/L (98-107); Estimated GFR-MDRD 79; Glucose 111 mg/dL (83-110); Potassium 3.7 mmol/L (3.5-5.1); Sodium 140 mmol/L (136-145)
[2019-03-15] MEDS: Ondansetron PF 4 MG/2 ML Vial IVP PRN ×2 (06:10→13:48)
[2019-03-15] MEDS: Morphine 2 MG/ML SYRINGE SLOW IVP PRN (06:11)
[2019-03-15] MEDS: Carvedilol 6.25 MG TAB PER TUBE SCH ×3 (07:44→20:39)
[2019-03-15] MEDS: Famotidine/PF 20 mg/2ml Vial SLOW IVP SCH (07:45)
--- NOTE | 2019-03-15 07:46 | HP ---
HISTORY OF PRESENT ILLNESS: Dilia Cohn is a 74-year-old female, presents to the emergency room with 3 days of nausea, vomiting, and abdominal distention. She underwent a CAT scan, demonstrating changes consistent with bowel obstruction with proximal dilatation to 3.5 cm and distal decompression with significant constipation. Her white count is normal, hemoglobin 12. Comprehensive metabolic profile normal. Glucose 137. NG tube has been placed to cm and x-ray confirmation after this reveals that the side hole was probably near the GE junction, the tip in the proximal stomach. The patient has multiple clips and lucia from sleeve gastrectomy and cholecystectomy. The patient reports that she is having abdominal problems for the past 3 to 6 months duration, of which, she is not clear. She has been seeing Dr. Preston. She has had upper and lower endoscopies. He has been evaluating her for an anemia. The patient's last bowel movement, she believes, was 2 to 3 days ago. She reports problems with diarrhea in the past. She states she was taking things for diarrhea. She states she describes her diarrhea is occurring after she eats 2 to 3 times a day and small volume liquid. In the last 3 days, she has not had diarrhea and has not taken antidiarrhea agents. She has pain all over from her arthritis and takes Ultram as needed, does not take narcotics. The patient has known coronary artery disease and saw Dr. Bahena in the last few weeks. She reports having had a stent in the past. ALLERGIES: YURI INHIBITORS, CODEINE CAUSES NAUSEA, SULFA CAUSES PRURITUS. SOCIAL HISTORY: Tobacco, none. Alcohol, none. MEDICATIONS: 1. Hydralazine 10 t.i.d. 2. Carvedilol 6.25 t.i.d. 3. Protonix daily. 4. Hyoscyamine 0.125 mg p.r.n.. 5. Hydrochlorothiazide daily. 6. Hydrocodone 5/325 p.r.n. listed on JUL, though, she states she takes Ultram, and not this. 7. Cymbalta 60 mg a day. 8. Atorvastatin. 9. Lipitor 20 mg a day. 10. Augmentin. PAST MEDICAL HISTORY: Morbid obesity; hypertension; coronary artery disease, stable, followed by Dr. Bahena, last seen in the last few weeks; arthritic pain; chronic low back pain, urolithiasis, lithotripsy. PAST SURGICAL HISTORY: Laparoscopic sleeve gastrectomy in 2010. She states she did not lose much weight, has gained some weight back, but not all. She does not recall her preoperative weight. Parathyroid gland resection, right carotid endarterectomy, hysterectomy without oophorectomy, laparoscopic cholecystectomy, appendectomy, and stated above right carotid endarterectomy with bovine patch. There were upper endoscopy biopsies by Dr. Preston in July 2017. In February 2013, colon biopsy, pathology all negative for H pylori and no malignancies. REVIEW OF SYSTEMS: Ten point otherwise noncontributory. PHYSICAL EXAMINATION: VITAL SIGNS: Weight 118 kg, 118 heart rate, 20 respirations, 98 degrees. HEAD, EARS, EYES, NOSE AND THROAT: Unremarkable. NG tube in placed to cm. LUNGS: Clear to auscultation. No wheezing. CARDIAC: Regular rate and rhythm without murmur or gallop. ABDOMEN: Soft, distended, tympanitic. No evident abdominal wall hernias. She is obese. EXTREMITIES: Unremarkable. LABORATORY DATA: Comprehensive metabolic profile normal. Hemoglobin 12 and white count 10.8. ASSESSMENT/PLAN: 1. Chronic abdominal pain and GI problems, followed by Dr. Preston. 2. Small bowel obstruction. NG tube to suction. Repeat abdominal x-rays tomorrow, small bowel follow-through tomorrow. 3. Constipation. She has significant stool in her colon. There apparently has no mechanical problems. Dr. Preston has been following her endoscopically and recent colonoscopy. 4. Chronic pain, on tramadol. Hydrocodone was listed one of her medication, but she states she takes tramadol. 5. History of sleeve gastrectomy. 6. History of cholecystectomy. 7. History of appendectomy. 8. Hypertension. 9. Coronary artery disease, followed by Dr. Bahena with her significant abdominal distention and tympany and chronic problems. It is possible she may need operative intervention. We will ask Cardiology to see her for preoperative cardiac assessment in case that is necessary. Currently, we will await clinical course and radiological evaluations. Job ID: [id number]
[2019-03-15] MEDS: Ketorolac Tromethamine 30 MG/ML VIAL IVP PRN (09:10)
--- NOTE | 2019-03-15 09:43 | CON ---
DATE OF CONSULTATION: REASON FOR CONSULTATION: Preop clearance. PRIMARY CARE PROVIDER: Suhas Caputo MD HISTORY OF PRESENT ILLNESS: Ms. Cohn is a pleasant 74-year-old woman, whom I have seen and evaluated in the past. She was last seen in December of 2011 in the office. She does have a previous history of moderate coronary artery disease diagnosed in 2013. Last stress test performed in the office showed LVEF of 67%. She had no significant ischemia present. She denies any recent chest pain, pressure, shortness of breath, or other associated symptoms. She is in need a preop clearance for small bowel obstruction. PAST MEDICAL HISTORY: Moderate CAD, nephrolithiasis, tachycardia, anxiety disorder, depression, colonic polyps, diverticulosis, acid reflux, sleep apnea, iron deficiency anemia, parathyroid removal, colonoscopy, appendectomy, hysterectomy, cholecystectomy, and previous stent placement in 2006. REVIEW OF SYSTEMS: Ten-point review of systems is reviewed and as above, otherwise negative. PHYSICAL EXAMINATION: GENERAL: Patient is a pleasant woman, who is in no acute distress. The patient appears their stated age. VITAL SIGNS: Blood pressure 179/76, pulse 90, and temperature 98.2. NEUROLOGIC: The patient is alert and oriented x3 with no focal neurologic deficits. HEENT: Sclerae without icterus. Mouth has moist mucous membranes with normal pallor. NECK: No JVD. Carotid upstroke brisk. No bruits bilaterally. LUNGS: Clear to auscultation with unlabored respirations. BACK: No scoliosis or kyphosis. CARDIAC: Regular rate and rhythm with normal S1 and S2. No S3 or S4 noted. No significant rubs, murmurs, thrills, or gallops noted throughout the precordium. PMI is not displaced. There is no parasternal heave. ABDOMEN: Soft, nontender, nondistended. No peritoneal signs present. No hepatosplenomegaly. No abnormal striae. EXTREMITIES: 2+ femoral and 2+ dorsalis pedis pulses. No cyanosis, clubbing, or edema. SKIN: No gross abnormalities. PERTINENT LABORATORY DATA: Hemoglobin 11.6. Creatinine 0.72. Troponin negative. EKG; normal sinus rhythm, normal EKG. IMPRESSION: 1. Preoperative clearance. 2. Coronary artery disease. 3. Status post stent placement. 4. Recent small bowel obstruction. RECOMMENDATIONS: Ms. Cohn has no current symptoms suggesting angina. Her last stress study was performed 2 years ago and did not suggest ischemia with a normal LVEF. Given no new symptoms and a recent stress study, the patient is felt to be at low risk for complications. We will clear for Surgery. I would try and keep her pulse pressure product optimal during the procedure. Otherwise, from my standpoint, I have no further recommendations. We will be okay to transfer back to surgical if no complications. Please re-consult if needed. Job ID: [id number]
[2019-03-15] MEDS ORDERED: MD-Gastroview 120 ML BOT ONE (12:00)
--- NOTE | 2019-03-15 13:08 | RAD ---
ABDOMEN 2 VIEWS: HISTORY: Small bowel obstruction. Followup. FINDINGS: Nasogastric tube terminates in the epigastric region. Multiple air-filled distended loops of small sunday wel. Additional small bowel loops are nondistended. There is scattered fecal material in a nondistended, nondilated colon. IMPRESSION: Persistent air-filled small bowel loops. There is evidence of fecal material distal to small bowel lo ops. Correlate for early or partial obstructive process versus focal ileus. Transcribed Date/Time: 03/15/2019 1:18 PM
--- NOTE | 2019-03-15 13:54 | RAD ---
GASTROGRAFIN SMALL BOWEL: HISTORY: Small bowel obstruction. COMPARISON: Two-view abdomen radiograph 03/15/2019 at 12:10 PM. FINDINGS: Portable single view of the abdomen performed at 1 hour demonstrates contrast opacifying multiple non distended, nondilated loops of small bowel. There is evidence of contrast opacifying multiple decompressed loops of colon, down to the level of rectum. IMPRESSION: No radiographic evidence of high-grade small bowel obstruction. Transcribed Date/Time: 03/15/2019 1:58 PM
[2019-03-15] MEDS ORDERED: Acetaminophen 500 MG TAB PO PRN (15:52)
[2019-03-15] MEDS ORDERED: traMADol HCl 50 MG TAB PO PRN (15:52)
--- NOTE | 2019-03-15 16:35 | PRG ---
DATE OF SERVICE: 03/15/2019 SUBJECTIVE: Dilia Cohn had a small bowel follow-through today. There was contrast passing through nondilated small bowel loops into the colon within 1 hour and she is having multiple bowel movements. She states she eats an apple a day, has a full bottle of MiraLAX that she has not been using. She has been working with Dr. Preston for multiple GI complaints. She has had a past sleeve gastrectomy with weight regained. NG tube has hardly put anything out overnight. OBJECTIVE: VITAL SIGNS: Temperature 97.8 degrees, pulse 73, blood pressure 156/76. LUNGS: Clear to auscultation. CARDIAC: Regular rate and rhythm without murmur or gallop. ABDOMEN: Soft, plus bowel sounds. Multiple bowel movements. ASSESSMENT AND PLAN: Severe constipation. No evidence of obstruction. We will start MiraLAX twice a day. Add fiber. Increase her diet to regular. Observe her overnight. If she tolerates her diet and does well, we will plan discharge home tomorrow. Job ID: [id number]
[2019-03-15] MEDS: Enoxaparin Sodium 40 MG/0.4 ML SYRINGE SC SCH (20:39)
[2019-03-15] MEDS: Polyethylene Glycol 3350 17 GM Packet PO SCH (20:39)
[2019-03-15] MEDS: Citrucel 500 MG TAB PO SCH (20:40)
[2019-03-15] MEDS: hydrALAZINE 10 MG TAB PO SCH (20:40)
[2019-03-15] MEDS ORDERED: FLU VACC TS2019-20(65YR UP)/PF 180 MCG/0.5 ML SYRINGE IM ONE (21:00)
[2019-03-15] MEDS ORDERED: Zolpidem Tartrate 5 MG TAB PO SCH (21:00)
[2019-03-16] MEDS ORDERED: DULoxetine 60 MG CAP PO SCH (09:00)
[2019-03-16] MEDS ORDERED: Hydrochlorothiazide 25 MG TAB PO SCH (09:00)
[2019-03-16] MEDS ORDERED: predniSONE 20 MG TAB PO SCH (09:00)
[2019-03-16] MEDS ORDERED: Pantoprazole 40 MG GRANULES PACKET PO SCH (09:00)
[2019-03-16] MEDS ORDERED: Atorvastatin Calcium 20 MG TAB PO SCH (09:00)
[2019-03-16] MEDS: Carvedilol 6.25 MG TAB PER TUBE SCH (10:25)
[2019-03-16] MEDS: hydrALAZINE 10 MG TAB PO SCH (10:27)
[2019-03-16] MEDS: Polyethylene Glycol 3350 17 GM Packet PO SCH (10:28)
[2019-03-16] MEDS: Citrucel 500 MG TAB PO SCH (10:28)
[2019-03-16 16:13] VITALS: BP 115/70; TEMP 98.1
[2019-03-19] MEDS ORDERED: Ibuprofen 200 MG TAB PO PRN (23:00)
== END 2019-03-16 17:06 | disposition home or self-care (01) | DRG 392 ==
LOC: ERS 13:54 → SJJU 16:04
PROVIDERS: ADMIT Specialist; ATTEND Specialist
DX: K59.00 Constipation, unspecified (principal); D64.9 Anemia, unspecified; I10 Essential (primary) hypertension; M19.90 Unspecified osteoarthritis, unspecified site; G89.29 Other chronic pain; I25.10 Atherosclerotic heart disease of native coronary artery without angina pectoris; F41.9 Anxiety disorder, unspecified; K21.9 Gastro-esophageal reflux disease without esophagitis; F32.9 Major depressive disorder, single episode, unspecified; Z90.710 Acquired absence of both cervix and uterus; Z90.49 Acquired absence of other specified parts of digestive tract; Z95.5 Presence of coronary angioplasty implant and graft; Z88.2 Allergy status to sulfonamides; Z88.8 Allergy status to other drugs, medicaments and biological substances; Z91.040 Latex allergy status; Z98.84 Bariatric surgery status; Z86.010 Personal history of colon polyps
CPT/HCPCS: 36415; 74018; 74019; 74177; 74250; 80048; 80053; 81003; 81015; 82550; 83605; 83690; 84484; 85025; 87086; 93005; 96361; 96365; 96375; 96376; J0360; J0696; J1650; J1885; J2270; J2405; J7512; Q9963; Q9966; S0028

== ENCOUNTER 2019-08-30 23:52 | Emergency (ER) | payer MEDICARE, BC ==
[2019-08-31] MEDS ORDERED: Ondansetron PF 4 MG/2 ML Vial ONE (00:16)
[2019-08-31 00:30] LABS: #Eosinphils 0.3 thou/uL (0.0-0.7); #Lymphocytes 1.4 thou/uL (1.20-3.40); #Neutrophils 7.3 thou/uL (1.40-6.50); %Basophils 0.4 % (0.0-1.0); %Eosinophils 2.6 % (0.0-10.0); %Lymphocytes 14.3 % (21.0-51.0); %Monocytes 9.9 % (0.0-10.0); %Neutrophils 72.7 % (42.0-75.0); Hemoglobin 12.6 g/dL (12.0-16.0); Mean Corpuscular HGB CONC 32.1 g/dL (32.0-36.0); Mean Corpuscular Hemoglobin 29.5 pg (27.0-31.0); Mean Platelet Volume 8.6 fL (7.4-10.4); Platelet Count 188 thou/uL (130-400); RBC Distribution Width 14.9 % (11.5-14.5); Red Blood Cell (RBC) Count 4.28 mill/uL (4.20-5.40); White Blood Cell (WBC) Count 10.1 thou/uL (4.8-10.8)
[2019-08-31] MEDS ORDERED: Ketorolac Tromethamine 30 MG/ML VIAL ONE (00:41)
[2019-08-31 00:52] LABS: ALT (SGPT) 8 U/L (8-55); AST (SGOT) 13 U/L (5-34); Alkaline Phosphatase 81 U/L (40-110); Anion Gap 13 mmol/L (10-20); BUN (Urea Nitrogen) 10 mg/dL (9.8-20.1); Bilirubin, Total 0.5 mg/dL (0.2-1.2); Calc. Creatinine Clearance 0 mL/min (70-130); Calcium 9.5 mg/dL (7.8-10.44); Carbon Dioxide 26 mmol/L (23-31); Chloride 103 mmol/L (98-107); Estimated GFR-MDRD 69; Globulin 2.8 g/dL (2.4-3.5); Glucose 106 mg/dL (83-110); Lipase Less than 4 U/L (8-78); Potassium 3.6 mmol/L (3.5-5.1); Protein, Total 6.8 g/dL (6.0-8.3); Sodium 138 mmol/L (136-145)
[2019-08-31 01:52] LABS: Bilirubin Negative (Negative); Blood, Urine Negative (Negative); Clarity Clear (Clear); Glucose, Urine (Dipstick) Normal (Negative); Leukocyte Negative Leu/uL (Negative); Nitrite Negative (Negative); Protein, Urine (Dipstick) Negative (Neg-Trace); Urobilinogen Normal mg/dL (Less than 2)
--- NOTE | 2019-08-31 08:13 | CT ---
PRELIMINARY REPORT/[facility]/EMERGENCY AFTER HOURS PROCEDURE: CT SCAN OF THE ABDOMEN AND PELVIS WITH IV CONTRAST CLINICAL HISTORY: Back pain and abdominal pain. TECHNIQUE: Axial images obtained. Coronal images obtained. Sagittal images obtained. Exam is performed with administration of 100 ml of Isovue-370 intravenous contrast. Per PQRS, CT exam is performed using one or more of the following dose reduction technique: Automated exposure control, adjustment of mA and/or KV according to patient size, or use of iterative reconstr uction techniques. COMPARISON: CT-abdomen/pelvis of 03/14/2019. FINDINGS: Bilateral renal cysts are seen. Follow-up with ultrasound. Atelectasis and scarring of the lung bases is seen. A small hiatal hernia is seen. Post-surgical changes of the stomach are seen. Cholecystectomy changes are seen. The uterus and adnexa are not visualized. Atherosclerotic calcifications of the abdominal aorta and aortoiliac bifurcation are seen. The rest of the solid organs, viscera, and bones are unremarkable. IMPRESSION: 1. Negative for acute process in the abdomen or pelvis. 2. Bilateral renal cysts. Follow-up with ultrasound. 3. Multiple chronic findings as described above. Overall improved appearance of the small bowel in th e right lower quadrant compared to the prior CT-abdomen/pelvis of 03/14/2019. ELECTRONICALLY SIGNED BY: Juan Mcdowell MD Aug 31, 2019 1:40:20 AM CDT This report is intended for review by the ordering physician only, in accordance of law. If you recei ve this report in error, please call [facility] at [phone]. FINAL REPORT ABDOMEN AND PELVIC CT SCAN WITH IV CONTRAST: EMERGENCY AFTER HOURS STUDY 1:10 A.M. 08-31-2019 Comparison: 03-14-19 FINDINGS: Stable bilateral renal cysts and nonobstructing bilateral renal calculi. Post op changes involving th e stomach and status post cholecystectomy. Stable focal small low density focus in the right lobe of the liver. The previously noted bowel obstructive changes seen on the prior study have resolved. IMPRESSION: No significant acute process. Other findings as above. This report is in agreement with the preliminary report.
[2019-08-31] MEDS ORDERED: Iopamidol 370 76% 100 ML VIAL ONE (08:25)
== END 2019-08-31 02:23 | disposition home or self-care (01) ==
LOC: ERS 23:52
DX: R10.9 Unspecified abdominal pain (principal); R10.817 Generalized abdominal tenderness; R11.0 Nausea; I10 Essential (primary) hypertension; M19.90 Unspecified osteoarthritis, unspecified site; F41.9 Anxiety disorder, unspecified
CPT/HCPCS: 74177; 80053; 81003; 83605; 83690; 85025; 96361; 96374; 96375; 99284; J1885; J2405; 36415; 82728

== ENCOUNTER 2020-03-11 10:23 | Outpatient (CLI) | payer MEDICARE, BC ==
[~2020-03-11 10:23] MED LIST changes: -ISOVUE-370 76%-LOCM 1 ML ONE; +Iopamidol 370 76% 100 ML VIAL ONE
--- NOTE | 2020-03-11 12:28 | CT ---
CT Abdomen Pelvis W WO con: 03/11/2020 11:10 AM CLINICAL INFORMATION: Generalized abdominal pain with history of small bowel obstruction COMPARISON: 03/14/2019 TECHNIQUE: Multiple contiguous axial images were obtained and a CT of the abdomen and pelvis without and with IV contrast. Oral contrast was administered. Coronal and sagittal reformats were performed. FINDINGS: Lower Chest: Small hiatal hernia. Calcified granuloma in the right lung base. Abdomen: Liver: within normal limits. Bile Ducts: Normal caliber. Gallbladder: Removed Pancreas: within normal limits. Spleen: within normal limits. Adrenals: within normal limits. Kidneys: Bilateral renal cysts measuring up to 5.0 cm in size. Bilateral punctate 1 to 2 mm nonobstru cting renal calculi. Pelvis: Reproductive Organs: Status post hysterectomy. Ureters: within normal limits. Bladder: within normal limits. Peritoneum: No free air or free fluid are seen in the abdomen or pelvis. There are stranding changes in the root of the small bowel mesentery in the right lower quadrant of the abdomen. This is in the region where the previous dilated loop of small bowel was present. Bowel: Status post gastric sleeve procedure. Stool is seen throughout the colon. The small bowel loop s are normal in caliber. The previously seen dilated loop of distal small bowel is now normal in caliber. No definite thickening or abnormal enhancement of the wall of the small bowel loops. Mesentery and Retroperitoneum: No enlarged mesenteric or retroperitoneal lymph nodes. Vessels: Atherosclerotic calcifications. Abdominal Wall: 2.3 cm fat-containing umbilical hernia Bones: Degenerative changes in the spine and hips. IMPRESSION: 1. Nonspecific stranding changes in the base of the small bowel mesentery in the right lower quadrant of the abdomen. 2. Bilateral nonobstructing renal calculi 3. Bilateral renal cysts 4. Hiatal hernia
== END 2020-03-11 10:24 | disposition home or self-care (01) ==
LOC: CT 10:23
PROVIDERS: ATTEND Physician Assistant Medical
DX: R10.84 Generalized abdominal pain (principal); K56.699 Other intestinal obstruction unspecified as to partial versus complete obstruction; R11.2 Nausea with vomiting, unspecified; N20.0 Calculus of kidney; N28.1 Cyst of kidney, acquired; K44.9 Diaphragmatic hernia without obstruction or gangrene
CPT/HCPCS: 74178; 82565; Q9967

== ENCOUNTER 2020-05-01 06:58 | Emergency (ER) | payer MEDICARE, BC ==
[2020-05-01] MEDS ORDERED: Morphine 4 MG/ML VIAL ONE (07:34)
[2020-05-01] MEDS ORDERED: Ondansetron PF 4 MG/2 ML Vial ONE (07:34)
[2020-05-01 07:39] LABS: #Eosinphils 0.2 thou/uL (0.0-0.7); #Lymphocytes 1.2 thou/uL (1.20-3.40); #Monocytes 0.8 thou/uL (0.11-0.59); #Neutrophils 6.5 thou/uL (1.40-6.50); %Basophils 0.2 % (0.0-1.0); %Eosinophils 1.9 % (0.0-10.0); %Lymphocytes 13.6 % (21.0-51.0); %Monocytes 9.2 % (0.0-10.0); Hemoglobin 14.7 g/dL (12.0-16.0); Mean Corpuscular HGB CONC 33.1 g/dL (32.0-36.0); Mean Corpuscular Hemoglobin 32.4 pg (27.0-31.0); Mean Corpuscular Volume 97.9 fL (78.0-98.0); Mean Platelet Volume 8.4 fL (7.4-10.4); Platelet Count 172 thou/uL (130-400); RBC Distribution Width 12.2 % (11.5-14.5); Red Blood Cell (RBC) Count 4.55 mill/uL (4.20-5.40); White Blood Cell (WBC) Count 8.7 thou/uL (4.8-10.8)
[2020-05-01 07:51] LABS: Prothrombin Time 13.5 sec (12.0-14.7)
[2020-05-01 07:59] LABS: PTT 21.8 sec (22.9-36.1)
[2020-05-01 08:00] LABS: ALT (SGPT) 11 U/L (8-55); AST (SGOT) 15 U/L (5-34); Albumin 3.8 g/dL (3.4-4.8); Alkaline Phosphatase 82 U/L (40-110); Anion Gap 15 mmol/L (10-20); BUN (Urea Nitrogen) 15 mg/dL (9.8-20.1); Bilirubin, Total 0.4 mg/dL (0.2-1.2); CK (CPK) 51 U/L (29-168); Calc. Creatinine Clearance 0 mL/min (70-130); Calcium 8.9 mg/dL (7.8-10.44); Carbon Dioxide 25 mmol/L (23-31); Chloride 105 mmol/L (98-107); Globulin 2.8 g/dL (2.4-3.5); Glucose 121 mg/dL (83-110); Lipase 8 U/L (8-78); Potassium 3.8 mmol/L (3.5-5.1); Protein, Total 6.6 g/dL (6.0-8.3); Sodium 141 mmol/L (136-145)
--- NOTE | 2020-05-01 08:05 | RAD ---
EXAM: Single view of the chest HISTORY: Nausea vomiting and abdominal pain COMPARISON: 05/18/2018 FINDINGS: Single view of the chest shows an enlarged cardiomediastinal silhouette. There are extensi ve mitral valve calcifications. There is no evidence of consolidation, mass, or pleural effusion. No acute osseous abnormality. IMPRESSION: Cardiomegaly
--- NOTE | 2020-05-01 08:51 | CT ---
CT Abdomen Pelvis W Con: 05/01/2020 8:22 AM CLINICAL INFORMATION: Abdominal discomfort. History of cholecystectomy, hysterectomy, and appendectom y COMPARISON: 08/31/2019, 03/11/2020 TECHNIQUE: Multiple contiguous axial images were obtained and a CT of the abdomen and pelvis with IV contrast. C oronal and sagittal reformats were performed. FINDINGS: Lower Chest: Mitral valve calcifications. Abdomen: Liver: within normal limits. Bile Ducts: Normal caliber. Gallbladder: Removed Pancreas: within normal limits. Spleen: within normal limits. Adrenals: within normal limits. Kidneys: Bilateral renal cysts measuring up to 4.5 cm in size. Punctate bilateral nonobstructing raquel l calcifications. Pelvis: Reproductive Organs: Status post hysterectomy Ureters: within normal limits. Bladder: within normal limits. Peritoneum: No ascites or free air, no fluid collection. There is stable nonspecific increased densit y of the small bowel mesentery. Bowel: Normal caliber. Scattered diverticula in the colon. Status post gastric sleeve procedure. Ther e is a small hiatal hernia. Mesentery and Retroperitoneum: There are slightly prominent lymph nodes amounts of sclerosis in the s mall bowel mesentery measuring up to 2.2 cm in size. Vessels: Atherosclerotic calcifications. Abdominal Wall: 2.0 cm fat-containing umbilical hernia Bones: Degenerative changes in the spine. IMPRESSION: 1. No evidence of acute intraabdominal or pelvic abnormality. 2. Bilateral renal cysts 3. Nonobstructing bilateral renal callus cages 4. Nonspecific increased density of the small bowel mesentery with associated enlarged mesenteric lym ph nodes. This could be secondary to sclerosing mesenteritis or lymphoma..
[2020-05-01] MEDS ORDERED: Iopamidol-370 76% 500 ML 1 ML ONE (11:45)
[2020-05-01] MEDS ORDERED: Morphine 2 MG/ML VIAL ONE (11:50)
== END 2020-05-01 12:22 | disposition home or self-care (01) ==
LOC: ERS 06:58
DX: R10.84 Generalized abdominal pain (principal); M19.90 Unspecified osteoarthritis, unspecified site; D64.9 Anemia, unspecified
CPT/HCPCS: 71045; 74177; 80053; 82550; 83690; 83880; 84484; 85025; 85610; 85730; 93005; 96372; 96374; 96375; 96376; 99285; J2270; 36415; J0500; J2405; Q9967

== ENCOUNTER 2020-06-12 08:30 | Outpatient (CLI) | payer MEDICARE, BC ==
[2020-06-13 06:16] LABS: SARS-CoV-2 PCR by NAA Not Detected (NotDetected)
== END 2020-06-12 08:31 | disposition home or self-care (01) ==
LOC: LABBT 08:30
PROVIDERS: ATTEND Surgery
DX: Z20.822 Contact with and (suspected) exposure to COVID-19 (principal)
CPT/HCPCS: U0003; U0005; 87635

== ENCOUNTER 2020-06-17 07:00 | Day surgery (SDC) | payer MEDICARE, BC ==
[2020-06-12 15:15] VITALS: BMI 37.8
[2020-06-17] MEDS ORDERED: Levofloxacin 500 mg/D5W 100 ml Premix Bag ONE (07:02)
[2020-06-17] MEDS ORDERED: XYLOCAINE 2%-EPI 1:100,000 20 ML VIAL ONE (08:36)
[2020-06-17] MEDS ORDERED: Bupivacaine PF 0.5% 30 ML VIAL ONE (08:36)
[2020-06-17] MEDS ORDERED: Fentanyl 100 MCG/2 ML VIAL ONE ×2 (08:43→10:21)
[2020-06-17] MEDS ORDERED: Rocuronium Bromide 10 MG/ML (10ML VIAL) ONE (09:08)
[2020-06-17] MEDS ORDERED: Ondansetron PF 4 MG/2 ML Vial ONE (09:08)
[2020-06-17] MEDS ORDERED: Glycopyrrolate 0.2 MG/ML 5 ML SYRINGE ONE (09:08)
[2020-06-17] MEDS ORDERED: PROPOFOL 200 MG/20 ML VIAL ONE (09:08)
[2020-06-17] MEDS ORDERED: diphenhydrAMINE 50 MG/ML VIAL ONE (09:08)
[2020-06-17] MEDS ORDERED: Dexamethasone 20 MG/5 ML VIAL ONE (09:08)
[2020-06-17] MEDS ORDERED: Lidocaine 1% PF 5 ML VIAL ONE (09:08)
--- NOTE | 2020-06-17 10:36 | OP ---
DATE OF PROCEDURE: 06/17/2020 Umbilical hernia. PROCEDURE PERFORMED: Umbilical hernia repair with mesh. INDICATIONS: This is a 75-year-old female, who has been having some periumbilical pain, had a hernia. CT showed the hernia. FINDINGS: She is morbidly obese. She had about a 2 cm defect, 8 cm piece of mesh used. DESCRIPTION OF PROCEDURE: After informed consent was obtained, the patient was taken to the operating room and given general endotracheal anesthesia, placed in the supine position. Abdomen was prepped and draped in usual fashion. Local anesthesia infiltrated subcutaneously and deep. A subumbilical incision was performed. Subcu divided sharply. The umbilical skin was dissected off the hernia sac sharply, then circumferentially down to the fascia and excised. There was about a 2 cm defect. An 8-cm PROCEED mesh was inserted intra-abdominally. The leaves were sutured to the abdominal wall with interrupted 0 Ethibond and the mesh further sutured circumferentially with interrupted 0 Ethibond. Then, the umbilical skin after hemostasis assured was sutured to the fascia with interrupted 3-0 Vicryl and the skin closed with interrupted 4-0 Rapide. Sterile bandage applied. The patient tolerated the procedure well, transferred to Recovery in good condition. Sponge and needle count verified correct x2. Job ID: [id number]
[2020-06-17] MEDS ORDERED: HYDROcodone/Acetaminophen 5/325 mg Tablet ONE (12:18)
== END 2020-06-17 13:00 | disposition home or self-care (01) ==
LOC: SDC 07:00
PROVIDERS: ATTEND Surgery
PROC: 0WUF0JZ Supplement Abdominal Wall with Synthetic Substitute, Open Approach (ICD-10-PCS; principal; 2020-06-17)
DX: K42.9 Umbilical hernia without obstruction or gangrene (principal); E66.01 Morbid (severe) obesity due to excess calories; M19.90 Unspecified osteoarthritis, unspecified site; G43.909 Migraine, unspecified, not intractable, without status migrainosus; Z68.37 Body mass index [BMI] 37.0-37.9, adult; Z79.82 Long term (current) use of aspirin; Z79.899 Other long term (current) drug therapy; Z88.1 Allergy status to other antibiotic agents; Z88.2 Allergy status to sulfonamides; Z88.5 Allergy status to narcotic agent; Z88.8 Allergy status to other drugs, medicaments and biological substances; Z91.018 Allergy to other foods
CPT/HCPCS: C1781; J1100; J1200; J1956; J2405; J2704; J3010; S0020

== ENCOUNTER 2020-07-22 07:14 | Outpatient (CLI) | payer MEDICARE, BC ==
[2020-07-22] MEDS ORDERED: Iopamidol-370 76% 500 ML 1 ML ONE (12:02)
== END 2020-07-22 07:15 | disposition home or self-care (01) ==
LOC: BICCT 07:14
PROVIDERS: ATTEND Surgery
DX: K42.9 Umbilical hernia without obstruction or gangrene (principal)
CPT/HCPCS: 74177; 82565; Q9967

== ENCOUNTER 2020-12-21 17:30 | Outpatient (CLI) | payer MEDICARE, BC | END 2020-12-21 17:31 | disposition home or self-care (01) | LOC: SLEEPLAB 17:30 | PROVIDERS: ATTEND Internal Medicine Critical Care Medicine | DX: G47.33 Obstructive sleep apnea (adult) (pediatric) (principal); R53.83 Other fatigue | CPT/HCPCS: 95801 ==

== ENCOUNTER 2021-01-29 19:00 | Outpatient (CLI) | payer MEDICARE, BC | END 2021-01-29 19:01 | disposition home or self-care (01) | LOC: SLEEPLAB 19:00 | PROVIDERS: ATTEND Internal Medicine Critical Care Medicine | DX: G47.33 Obstructive sleep apnea (adult) (pediatric) (principal); I10 Essential (primary) hypertension; K21.9 Gastro-esophageal reflux disease without esophagitis; G47.00 Insomnia, unspecified; G47.10 Hypersomnia, unspecified | CPT/HCPCS: 95810 ==

== ENCOUNTER 2021-04-16 17:15 | Inpatient (IN) | payer MEDICARE, BC ==
[2021-04-16 19:15] LABS: #Basophils 0.1 thou/uL (0.0-0.2); #Eosinphils 0.4 thou/uL (0.0-0.7); #Lymphocytes 2.1 thou/uL (1.20-3.40); #Monocytes 0.8 thou/uL (0.11-0.59); %Basophils 0.7 % (0.0-1.0); %Eosinophils 4.5 % (0.0-10.0); %Lymphocytes 25.3 % (21.0-51.0); %Monocytes 9.3 % (0.0-10.0); %Neutrophils 60.1 % (42.0-75.0); Hemoglobin 12.4 g/dL (12.0-16.0); Mean Corpuscular HGB CONC 31.8 g/dL (32.0-36.0); Mean Corpuscular Hemoglobin 28.7 pg (27.0-31.0); Mean Corpuscular Volume 90.4 fL (78.0-98.0); Mean Platelet Volume 8.4 fL (7.4-10.4); Platelet Count 204 thou/uL (130-400); RBC Distribution Width 15.4 % (11.5-14.5); Red Blood Cell (RBC) Count 4.32 mill/uL (4.20-5.40); White Blood Cell (WBC) Count 8.4 thou/uL (4.8-10.8)
[2021-04-16 19:37] LABS: ALT (SGPT) 11 U/L (8-55); AST (SGOT) 15 U/L (5-34); Albumin 3.7 g/dL (3.4-4.8); Alkaline Phosphatase 65 U/L (40-110); Anion Gap 12 mmol/L (10-20); BUN (Urea Nitrogen) 20 mg/dL (9.8-20.1); Bilirubin, Total 0.3 mg/dL (0.2-1.2); Calc. Creatinine Clearance 0 mL/min (70-130); Carbon Dioxide 31 mmol/L (23-31); Chloride 101 mmol/L (98-107); Globulin 2.7 g/dL (2.4-3.5); Glucose 92 mg/dL (83-110); Potassium 3.1 mmol/L (3.5-5.1); Protein, Total 6.4 g/dL (5.8-8.1); Sodium 141 mmol/L (136-145)
[2021-04-16] MEDS ORDERED: Acetaminophen 500 MG TAB ONE (19:37)
[2021-04-16] MEDS ORDERED: Potassium Chloride 20 MEQ TAB ONE (21:36)
[2021-04-16 22:06] LABS: Magnesium 1.8 mg/dL (1.6-2.6)
[2021-04-16] MEDS ORDERED: hydrALAZINE 20 MG/ML VIAL SLOW IVP PRN (23:04)
[2021-04-16] MEDS ORDERED: Electrolyte Replacement Protocol 1 EACH FS SCH (23:15)
[2021-04-16] MEDS ORDERED: Sodium Chloride 0.9% 500 ML IV SCH (23:15)
[2021-04-17] MEDS: Acetaminophen 325 MG TAB PO PRN ×3 (00:57→22:24)
[2021-04-17] MEDS ORDERED: Magnesium 2 GM/50 ML 2 GM in Premix Bag 1 BAG IVPB SCH (01:00)
[2021-04-17 03:03] LABS: Hemoglobin A1c 4.8 % (4.0-6.0)
[2021-04-17 04:02] LABS: ALT (SGPT) 12 U/L (8-55); AST (SGOT) 15 U/L (5-34); Albumin 3.2 g/dL (3.4-4.8); Alkaline Phosphatase 55 U/L (40-110); Anion Gap 12 mmol/L (10-20); BUN (Urea Nitrogen) 18 mg/dL (9.8-20.1); Bilirubin, Total 0.5 mg/dL (0.2-1.2); Calc. Creatinine Clearance 72 mL/min (70-130); Calcium 8.6 mg/dL (7.8-10.44); Carbon Dioxide 26 mmol/L (23-31); Cardiac Risk 3.2 (Less than 4.5); Chloride 104 mmol/L (98-107); Cholesterol 126 mg/dl (< 200 Desired); Globulin 2.3 g/dL (2.4-3.5); Glucose 93 mg/dL (83-110); HDL Cholesterol 39 mg/dL (>60 Neg Risk); LDL Cholesterol, Calculated 59 mg/dL; Magnesium 2.5 mg/dL (1.6-2.6); Potassium 3.3 mmol/L (3.5-5.1); Protein, Total 5.5 g/dL (5.8-8.1); Sodium 139 mmol/L (136-145); Triglycerides 138 mg/dL (Less than 150)
[2021-04-17] MEDS ORDERED: Potassium Chloride 20 MEQ TAB PO SCH (05:15)
[2021-04-17] MEDS: Enoxaparin Sodium 40 MG/0.4 ML SYRINGE SC SCH (08:16)
[2021-04-17] MEDS: Aspirin 81 mg Enteric Coated Tablet PO SCH (08:16)
[2021-04-17] MEDS ORDERED: FLU VACC QS2021-22(65YR UP)/PF 240 MCG/0.7 ML SYRINGE IM ONE (09:00)
[2021-04-17 10:06] LABS: Anion Gap 12 mmol/L (10-20); BUN (Urea Nitrogen) 14 mg/dL (9.8-20.1); Calc. Creatinine Clearance 83 mL/min (70-130); Calcium 8.6 mg/dL (7.8-10.44); Carbon Dioxide 24 mmol/L (23-31); Chloride 107 mmol/L (98-107); Glucose 96 mg/dL (83-110); Potassium 3.9 mmol/L (3.5-5.1); Sodium 139 mmol/L (136-145)
[2021-04-17] MEDS ORDERED: Furosemide 40 MG TAB PO SCH (15:00)
[2021-04-17] MEDS ORDERED: Amlodipine 10 MG TAB PO SCH (15:00)
[2021-04-17] MEDS ORDERED: hydrALAZINE 25 MG TAB PO SCH (15:15)
[2021-04-17 15:39] LABS: SARS-CoV-2 PCR by NAA Not Detected (NotDetected)
[2021-04-17] MEDS: hydrALAZINE 25 MG TAB PO SCH (20:14)
[2021-04-17] MEDS: Melatonin 3 MG TAB PO SCH (20:14)
[2021-04-17] MEDS: clonazePAM 0.5 MG TAB PO SCH (20:15)
[2021-04-17] MEDS: Atorvastatin Calcium 20 MG TAB PO SCH (20:15)
[2021-04-17] MEDS: Carvedilol 6.25 MG TAB PO SCH (20:15)
[2021-04-17] MEDS ORDERED: Atorvastatin Calcium 20 MG TAB PO SCH (21:00)
[2021-04-18 05:54] LABS: ALT (SGPT) 9 U/L (8-55); AST (SGOT) 15 U/L (5-34); Alkaline Phosphatase 49 U/L (40-110); Anion Gap 12 mmol/L (10-20); BUN (Urea Nitrogen) 14 mg/dL (9.8-20.1); Bilirubin, Total 0.5 mg/dL (0.2-1.2); Calc. Creatinine Clearance 87 mL/min (70-130); Calcium 8.7 mg/dL (7.8-10.44); Carbon Dioxide 25 mmol/L (23-31); Chloride 105 mmol/L (98-107); Globulin 2.3 g/dL (2.4-3.5); Glucose 94 mg/dL (83-110); Potassium 3.7 mmol/L (3.5-5.1); Protein, Total 5.3 g/dL (5.8-8.1); Sodium 138 mmol/L (136-145)
[2021-04-18] MEDS: Amlodipine 10 MG TAB PO SCH (08:30)
[2021-04-18] MEDS: Carvedilol 6.25 MG TAB PO SCH ×2 (08:30→21:16)
[2021-04-18] MEDS: Bupropion 150 MG SR TAB PO SCH (08:31)
[2021-04-18] MEDS: hydrALAZINE 25 MG TAB PO SCH ×2 (08:31→21:17)
[2021-04-18] MEDS: Furosemide 40 MG TAB PO SCH (08:31)
[2021-04-18] MEDS: Aspirin 81 mg Enteric Coated Tablet PO SCH (08:31)
[2021-04-18] MEDS: Enoxaparin Sodium 40 MG/0.4 ML SYRINGE SC SCH (08:31)
[2021-04-18] MEDS: Ondansetron ODT 4 MG TAB PO PRN (09:36)
[2021-04-18] MEDS: Atorvastatin Calcium 20 MG TAB PO SCH (21:16)
[2021-04-18] MEDS: Melatonin 3 MG TAB PO SCH (21:17)
[2021-04-18] MEDS: clonazePAM 0.5 MG TAB PO SCH (21:17)
[2021-04-18] MEDS: Acetaminophen 325 MG TAB PO PRN (23:38)
[2021-04-19 06:45] VITALS: BMI 35.2
[2021-04-19] MEDS: Aspirin 81 mg Enteric Coated Tablet PO SCH (08:56)
[2021-04-19] MEDS: Furosemide 40 MG TAB PO SCH (08:56)
[2021-04-19] MEDS: Amlodipine 10 MG TAB PO SCH (08:56)
[2021-04-19] MEDS: Bupropion 150 MG SR TAB PO SCH (08:56)
[2021-04-19] MEDS: Carvedilol 6.25 MG TAB PO SCH ×2 (08:56→21:33)
[2021-04-19] MEDS: Enoxaparin Sodium 40 MG/0.4 ML SYRINGE SC SCH (08:57)
[2021-04-19] MEDS: hydrALAZINE 25 MG TAB PO SCH ×2 (08:57→21:34)
[2021-04-19] MEDS: Ondansetron ODT 4 MG TAB PO PRN (09:08)
[2021-04-19 12:06] LABS: Iron 42 ug/dL (50-170); Iron Binding Capacity, Total 250 mcg/dL (265-497)
[2021-04-19] MEDS ORDERED: Opium Tincture 10% (1ml Charge) PO PRN (16:04)
[2021-04-19] MEDS ORDERED: Loperamide HCl 1 MG/7.5 ML UDCUP PO PRN (16:04)
[2021-04-19] MEDS ORDERED: Iron Sucrose Complex 200 MG in Sodium Chloride 0.9% 100 ML IVPB SCH (16:15)
[2021-04-19] MEDS ORDERED: Iron, Sodium Ferric Gluconate 250 MG in Sodium Chloride 0.9% 250 ML 250 ML IVPB SCH (16:15)
[2021-04-19] MEDS ORDERED: Loperamide HCl 2 MG CAP PO PRN (17:15)
[2021-04-19 17:22] LABS: #Eosinphils 0.3 thou/uL (0.0-0.7); #Lymphocytes 1.6 thou/uL (1.20-3.40); #Monocytes 0.8 thou/uL (0.11-0.59); #Neutrophils 5.1 thou/uL (1.40-6.50); %Basophils 0.3 % (0.0-1.0); %Eosinophils 4.1 % (0.0-10.0); %Lymphocytes 20.7 % (21.0-51.0); %Monocytes 9.8 % (0.0-10.0); %Neutrophils 65.1 % (42.0-75.0); Mean Corpuscular HGB CONC 32.2 g/dL (32.0-36.0); Mean Corpuscular Hemoglobin 29.6 pg (27.0-31.0); Mean Corpuscular Volume 91.8 fL (78.0-98.0); Mean Platelet Volume 8.2 fL (7.4-10.4); Platelet Count 159 thou/uL (130-400); RBC Distribution Width 15.8 % (11.5-14.5); Red Blood Cell (RBC) Count 4.05 mill/uL (4.20-5.40); White Blood Cell (WBC) Count 7.8 thou/uL (4.8-10.8)
[2021-04-19 17:38] LABS: Anion Gap 13 mmol/L (10-20); BUN (Urea Nitrogen) 19 mg/dL (9.8-20.1); Calc. Creatinine Clearance 64 mL/min (70-130); Calcium 8.6 mg/dL (7.8-10.44); Carbon Dioxide 24 mmol/L (23-31); Chloride 105 mmol/L (98-107); Glucose 99 mg/dL (83-110); Magnesium 1.6 mg/dL (1.6-2.6); Phosphorus 3.3 mg/dL (2.3-4.7); Potassium 3.9 mmol/L (3.5-5.1); Sodium 138 mmol/L (136-145)
[2021-04-19] MEDS: Atorvastatin Calcium 20 MG TAB PO SCH (21:33)
[2021-04-19] MEDS: clonazePAM 0.5 MG TAB PO SCH (21:33)
[2021-04-19] MEDS: Acetaminophen 325 MG TAB PO PRN (21:34)
[2021-04-19] MEDS: Melatonin 3 MG TAB PO SCH (21:34)
[2021-04-20] MEDS ORDERED: Ketorolac Tromethamine 30 MG/ML VIAL IVP SCH (02:00)
[2021-04-20] MEDS: Carvedilol 6.25 MG TAB PO SCH (08:50)
[2021-04-20] MEDS: hydrALAZINE 25 MG TAB PO SCH (08:50)
[2021-04-20] MEDS: Enoxaparin Sodium 40 MG/0.4 ML SYRINGE SC SCH (08:50)
[2021-04-20] MEDS: Aspirin 81 mg Enteric Coated Tablet PO SCH (08:50)
[2021-04-20] MEDS: Furosemide 40 MG TAB PO SCH (08:50)
[2021-04-20] MEDS: Amlodipine 10 MG TAB PO SCH (08:50)
[2021-04-20] MEDS: Bupropion 150 MG SR TAB PO SCH (08:50)
[2021-04-20] MEDS: Ondansetron ODT 4 MG TAB PO PRN (08:54)
[2021-04-20 12:03] VITALS: BP 127/62; TEMP 98
== END 2021-04-20 15:00 | disposition home health service (06) | DRG 914 ==
LOC: ERS 17:15 → NEURO 21:40 → OBSVTOIN 04-19 10:05
PROVIDERS: ADMIT Internal Medicine; ATTEND Internal Medicine
DX: S09.90XA Unspecified injury of head, initial encounter (principal); Z20.822 Contact with and (suspected) exposure to COVID-19; Z23 Encounter for immunization; I10 Essential (primary) hypertension; I25.10 Atherosclerotic heart disease of native coronary artery without angina pectoris; E87.5 Hyperkalemia; E87.6 Hypokalemia; I65.21 Occlusion and stenosis of right carotid artery; E78.5 Hyperlipidemia, unspecified; G43.909 Migraine, unspecified, not intractable, without status migrainosus; W18.30XA Fall on same level, unspecified, initial encounter; M19.90 Unspecified osteoarthritis, unspecified site; F32.A Depression, unspecified; E66.01 Morbid (severe) obesity due to excess calories; G89.4 Chronic pain syndrome; K21.9 Gastro-esophageal reflux disease without esophagitis; R19.7 Diarrhea, unspecified; Z95.5 Presence of coronary angioplasty implant and graft; Z68.35 Body mass index [BMI] 35.0-35.9, adult; Z88.5 Allergy status to narcotic agent; Z88.2 Allergy status to sulfonamides; Z88.8 Allergy status to other drugs, medicaments and biological substances; Z91.040 Latex allergy status; Z79.899 Other long term (current) drug therapy; Z79.82 Long term (current) use of aspirin; Z90.49 Acquired absence of other specified parts of digestive tract; Z98.890 Other specified postprocedural states; Z82.49 Family history of ischemic heart disease and other diseases of the circulatory system
CPT/HCPCS: 36415; 70450; 70551; 80048; 80053; 80061; 82728; 83036; 83540; 83550; 83735; 84100; 84443; 84484; 85025; 90471; 90662; 90732; 93005; 93306; 93880; 96372; 96374; G0008; G0009; G0378; J1650; J1885; J2916; J3475; J7050; Q0162; U0003; U0005

== ENCOUNTER 2021-05-24 12:59 | Emergency (ER) | payer MEDICARE, BC ==
[~2021-05-24 12:59] MED LIST changes: -Iopamidol 370 76% 100 ML VIAL ONE; +Iopamidol-370 76% 500 ML 1 ML ONE
[2021-05-24 14:05] LABS: #Eosinphils 0.1 thou/uL (0.0-0.7); #Lymphocytes 1.6 thou/uL (1.20-3.40); #Neutrophils 9.3 thou/uL (1.40-6.50); %Basophils 0.3 % (0.0-1.0); %Eosinophils 0.7 % (0.0-10.0); %Lymphocytes 13.6 % (21.0-51.0); %Monocytes 8.2 % (0.0-10.0); %Neutrophils 77.2 % (42.0-75.0); Hemoglobin 13.2 g/dL (12.0-16.0); Mean Corpuscular HGB CONC 33.7 g/dL (32.0-36.0); Mean Corpuscular Volume 91.9 fL (78.0-98.0); Mean Platelet Volume 8.3 fL (7.4-10.4); Platelet Count 231 thou/uL (130-400); RBC Distribution Width 14.2 % (11.5-14.5); Red Blood Cell (RBC) Count 4.27 mill/uL (4.20-5.40); White Blood Cell (WBC) Count 12.1 thou/uL (4.8-10.8)
[2021-05-24 14:26] LABS: ALT (SGPT) 13 U/L (8-55); AST (SGOT) 16 U/L (5-34); Albumin 3.4 g/dL (3.4-4.8); Alkaline Phosphatase 74 U/L (40-110); Anion Gap 14 mmol/L (10-20); BUN (Urea Nitrogen) 22 mg/dL (9.8-20.1); Bilirubin, Total 0.5 mg/dL (0.2-1.2); Calc. Creatinine Clearance 0 mL/min (70-130); Carbon Dioxide 28 mmol/L (23-31); Chloride 99 mmol/L (98-107); Globulin 2.9 g/dL (2.4-3.5); Glucose 139 mg/dL (83-110); Lipase 8 U/L (8-78); Protein, Total 6.3 g/dL (5.8-8.1); Sodium 138 mmol/L (136-145)
[2021-05-24 14:39] LABS: Potassium 2.7 mmol/L (3.5-5.1)
[2021-05-24] MEDS ORDERED: Ondansetron PF 4 MG/2 ML Vial ONE (16:18)
[2021-05-24] MEDS ORDERED: Potassium Chloride 20 MEQ TAB ONE (20:06)
[2021-05-24] MEDS ORDERED: Morphine 4 MG/ML VIAL ONE (20:06)
== END 2021-05-24 20:40 | disposition home or self-care (01) ==
LOC: ER/OP 12:59 → ERS 12:59
DX: K52.9 Noninfective gastroenteritis and colitis, unspecified (principal); N20.0 Calculus of kidney; N28.1 Cyst of kidney, acquired; I51.7 Cardiomegaly; I49.8 Other specified cardiac arrhythmias; D64.9 Anemia, unspecified; M19.90 Unspecified osteoarthritis, unspecified site
CPT/HCPCS: 36415; 70450; 74177; 80053; 83690; 85025; 86850; 86900; 86901; 93005; 96374; 96375; J2270; J2405; Q9967

== ENCOUNTER 2021-11-25 16:55 | Inpatient (IN) | payer MEDICARE, BC ==
[2021-11-25 19:09] LABS: #Basophils 0.1 thou/uL (0.0-0.2); #Eosinphils 0.2 thou/uL (0.0-0.7); #Lymphocytes 1.6 thou/uL (1.20-3.40); #Monocytes 0.7 thou/uL (0.11-0.59); #Neutrophils 4.7 thou/uL (1.40-6.50); %Basophils 0.8 % (0.0-1.0); %Lymphocytes 22.3 % (21.0-51.0); %Monocytes 9.9 % (0.0-10.0); %Neutrophils 63.9 % (42.0-75.0); Mean Corpuscular HGB CONC 31.5 g/dL (32.0-36.0); Mean Corpuscular Volume 98.2 fL (78.0-98.0); Mean Platelet Volume 8.5 fL (7.4-10.4); Platelet Count 203 thou/uL (130-400); RBC Distribution Width 14.6 % (11.5-14.5); White Blood Cell (WBC) Count 7.3 thou/uL (4.8-10.8)
[2021-11-25 19:28] LABS: PTT 28.5 sec (22.9-36.1); Prothrombin Time 13.4 sec (12.0-14.7)
[2021-11-25 19:29] LABS: D-Dimer Test 0.53 *mcg/mL (0.27-0.43)
[2021-11-25 19:33] LABS: ALT (SGPT) 11 U/L (8-55); AST (SGOT) 17 U/L (5-34); Albumin 3.5 g/dL (3.4-4.8); Alkaline Phosphatase 64 U/L (40-110); Anion Gap 14 mmol/L (10-20); BUN (Urea Nitrogen) 23 mg/dL (9.8-20.1); Bilirubin, Total 0.4 mg/dL (0.2-1.2); Calc. Creatinine Clearance 0 mL/min (70-130); Calcium 8.8 mg/dL (7.8-10.44); Carbon Dioxide 24 mmol/L (23-31); Chloride 105 mmol/L (98-107); Estimated GFR 49; Globulin 2.4 g/dL (2.4-3.5); Glucose 101 mg/dL (83-110); Potassium 3.8 mmol/L (3.5-5.1); Protein, Total 5.9 g/dL (5.8-8.1); Sodium 139 mmol/L (136-145)
[2021-11-25 20:22] LABS: Bacteria/HPF None Seen HPF (None Seen); Bilirubin Negative (Negative); Blood, Urine Negative (Negative); Clarity Clear (Clear); Glucose, Urine (Dipstick) Normal (Negative); Ketone, Urine Negative (Negative); Leukocyte 75 Leu/uL (Negative); Nitrite Negative (Negative); Protein, Urine (Dipstick) Negative (Neg-Trace); RBC/HPF 0-3 HPF (0-3); Specific Gravity, Urine 1.023 (1.002-1.036); Squamous Epithelial 0-3 HPF (0-3); Urobilinogen Normal mg/dL (Less than 2); pH, Urine 7.5 (5.0-9.0)
[2021-11-25] MEDS ORDERED: cefTRIAXone\\ROCEPHIN 1 GM VIAL ONE (20:38)
[2021-11-25] MEDS ORDERED: Furosemide 40 MG/4 ML VIAL ONE (20:51)
[2021-11-25 23:06] LABS: Troponin I Less than 0.010 ng/mL (< 0.028)
[2021-11-25 23:42] VITALS: BMI 32.5
[2021-11-26] MEDS ORDERED: Ondansetron ODT 4 MG TAB SL PRN (00:30)
[2021-11-26] MEDS ORDERED: Acetaminophen 325 MG TAB PO PRN (00:30)
[2021-11-26 01:49] LABS: Troponin I Less than 0.010 ng/mL (< 0.028)
[2021-11-26] MEDS ORDERED: hydrALAZINE 20 MG/ML VIAL SLOW IVP PRN (04:20)
[2021-11-26] MEDS ORDERED: Acetaminophen/Codeine 30-300mg Tablet PO SCH (04:45)
[2021-11-26] MEDS: Furosemide 20 MG/2 ML VIAL SLOW IVP SCH ×2 (06:01→13:47)
[2021-11-26 07:06] LABS: #Eosinphils 0.3 thou/uL (0.0-0.7); #Lymphocytes 1.5 thou/uL (1.20-3.40); #Monocytes 0.7 thou/uL (0.11-0.59); #Neutrophils 5.1 thou/uL (1.40-6.50); %Basophils 0.6 % (0.0-1.0); %Eosinophils 3.5 % (0.0-10.0); %Lymphocytes 20.1 % (21.0-51.0); %Monocytes 8.8 % (0.0-10.0); %Neutrophils 67.1 % (42.0-75.0); Hemoglobin 13.6 g/dL (12.0-16.0); Mean Corpuscular HGB CONC 32.3 g/dL (32.0-36.0); Mean Corpuscular Hemoglobin 31.4 pg (27.0-31.0); Mean Corpuscular Volume 97.3 fL (78.0-98.0); Mean Platelet Volume 8.3 fL (7.4-10.4); Platelet Count 186 thou/uL (130-400); RBC Distribution Width 14.6 % (11.5-14.5); Red Blood Cell (RBC) Count 4.32 mill/uL (4.20-5.40); White Blood Cell (WBC) Count 7.6 thou/uL (4.8-10.8)
[2021-11-26 07:24] LABS: Anion Gap 14 mmol/L (10-20); BUN (Urea Nitrogen) 18 mg/dL (9.8-20.1); Calc. Creatinine Clearance 61 mL/min (70-130); Calcium 8.9 mg/dL (7.8-10.44); Carbon Dioxide 26 mmol/L (23-31); Chloride 103 mmol/L (98-107); Estimated GFR 56; Glucose 91 mg/dL (83-110); Magnesium 1.6 mg/dL (1.6-2.6); Potassium 3.4 mmol/L (3.5-5.1); Sodium 140 mmol/L (136-145)
[2021-11-26] MEDS: Heparin 5,000 UNITS/ML VIAL SC SCH ×2 (07:44→20:46)
[2021-11-26] MEDS: Acetaminophen/Codeine 30-300mg Tablet PO PRN ×2 (14:50→22:18)
[2021-11-26] MEDS ORDERED: Ondansetron PF 4 MG/2 ML Vial IVP PRN (18:21)
[2021-11-26] MEDS: Ondansetron PF 4 MG/2 ML Vial IVP PRN (18:37)
[2021-11-26] MEDS: cefTRIAXone\\ROCEPHIN 1 GM in Sodium Chloride 0.9% 100 ML IVPB SCH (20:40)
[2021-11-26] MEDS: Carvedilol 6.25 MG TAB PO SCH (20:45)
[2021-11-26] MEDS: Melatonin 3 MG TAB PO SCH (20:45)
[2021-11-26] MEDS: Atorvastatin Calcium 20 MG TAB PO SCH (20:45)
[2021-11-26] MEDS: Methocarbamol 500 MG TAB PO SCH (20:57)
[2021-11-26] MEDS ORDERED: Methocarbamol 500 MG TAB PO SCH (21:00)
[2021-11-26] MEDS ORDERED: Carvedilol 6.25 MG TAB PO SCH (21:00)
[2021-11-26] MEDS ORDERED: Non-Formulary Item 1 EACH (Melatonin [Melatonin] 10 MG Tablet) PO SCH (21:00)
[2021-11-26] MEDS: hydrOXYzine 25 MG TAB PO PRN (21:35)
[2021-11-27] MEDS: Ondansetron PF 4 MG/2 ML Vial IVP PRN ×2 (01:13→15:50)
[2021-11-27 04:32] LABS: Anion Gap 15 mmol/L (10-20); BUN (Urea Nitrogen) 25 mg/dL (9.8-20.1); Calc. Creatinine Clearance 60 mL/min (70-130); Calcium 8.5 mg/dL (7.8-10.44); Carbon Dioxide 27 mmol/L (23-31); Chloride 101 mmol/L (98-107); Estimated GFR 54; Glucose 93 mg/dL (83-110); Magnesium 1.6 mg/dL (1.6-2.6); Potassium 3.6 mmol/L (3.5-5.1); Sodium 139 mmol/L (136-145)
[2021-11-27] MEDS: Furosemide 20 MG/2 ML VIAL SLOW IVP SCH ×2 (05:10→13:16)
[2021-11-27] MEDS: Acetaminophen/Codeine 30-300mg Tablet PO PRN ×2 (05:28→20:35)
[2021-11-27] MEDS: hydrOXYzine 25 MG TAB PO PRN ×3 (05:42→20:33)
[2021-11-27 06:49] LABS: #Eosinphils 0.2 thou/uL (0.0-0.7); #Lymphocytes 1.8 thou/uL (1.20-3.40); #Monocytes 0.8 thou/uL (0.11-0.59); #Neutrophils 5.9 thou/uL (1.40-6.50); %Basophils 0.3 % (0.0-1.0); %Eosinophils 2.4 % (0.0-10.0); %Lymphocytes 20.1 % (21.0-51.0); %Monocytes 9.3 % (0.0-10.0); %Neutrophils 67.9 % (42.0-75.0); Anisocytosis SLIGHT = 6-15 cells (100X) (0-5/hpf); Hemoglobin 12.4 g/dL (12.0-16.0); MDiff Complete? YES; Mean Corpuscular HGB CONC 31.5 g/dL (32.0-36.0); Mean Corpuscular Hemoglobin 31.9 pg (27.0-31.0); Platelet Count 188 thou/uL (130-400); RBC Distribution Width 14.7 % (11.5-14.5); Red Blood Cell (RBC) Count 3.88 mill/uL (4.20-5.40); White Blood Cell (WBC) Count 8.7 thou/uL (4.8-10.8)
[2021-11-27] MEDS: Heparin 5,000 UNITS/ML VIAL SC SCH ×2 (08:58→20:37)
[2021-11-27] MEDS: Carvedilol 6.25 MG TAB PO SCH ×2 (08:59→20:35)
[2021-11-27] MEDS: Aspirin 81 mg Enteric Coated Tablet PO SCH (09:00)
[2021-11-27] MEDS ORDERED: hydrALAZINE 25 MG TAB PO SCH ×3 (09:00→21:00)
[2021-11-27] MEDS ORDERED: Amlodipine 10 MG TAB PO SCH (09:00)
[2021-11-27] MEDS ORDERED: TROLAMINE SALICYLATE TOP PRN (09:16)
[2021-11-27] MEDS: Bupropion 150 MG SR TAB PO SCH (11:16)
[2021-11-27] MEDS: Meloxicam 7.5 MG TAB PO SCH (11:16)
[2021-11-27] MEDS ORDERED: Magnesium Citrate 300 ML BOT PO SCH (19:15)
[2021-11-27] MEDS ORDERED: Methyl Salicylate/Menthol 85 GM TUBE TOP PRN (19:35)
[2021-11-27] MEDS: cefTRIAXone\\ROCEPHIN 1 GM in Sodium Chloride 0.9% 100 ML IVPB SCH (20:27)
[2021-11-27] MEDS: Melatonin 3 MG TAB PO SCH (20:33)
[2021-11-27] MEDS: Methocarbamol 500 MG TAB PO SCH (20:34)
[2021-11-27] MEDS: Atorvastatin Calcium 20 MG TAB PO SCH (20:34)
[2021-11-28 04:57] LABS: #Basophils 0.1 thou/uL (0.0-0.2); #Eosinphils 0.3 thou/uL (0.0-0.7); #Lymphocytes 1.8 thou/uL (1.20-3.40); #Monocytes 0.7 thou/uL (0.11-0.59); #Neutrophils 4.5 thou/uL (1.40-6.50); %Basophils 0.7 % (0.0-1.0); %Eosinophils 3.8 % (0.0-10.0); %Lymphocytes 24.4 % (21.0-51.0); %Neutrophils 61.2 % (42.0-75.0); Hemoglobin 12.3 g/dL (12.0-16.0); Mean Corpuscular HGB CONC 32.6 g/dL (32.0-36.0); Mean Corpuscular Hemoglobin 31.9 pg (27.0-31.0); Mean Corpuscular Volume 97.8 fL (78.0-98.0); Mean Platelet Volume 8.2 fL (7.4-10.4); Platelet Count 187 thou/uL (130-400); RBC Distribution Width 13.7 % (11.5-14.5); Red Blood Cell (RBC) Count 3.86 mill/uL (4.20-5.40); White Blood Cell (WBC) Count 7.4 thou/uL (4.8-10.8)
[2021-11-28 05:16] LABS: Anion Gap 14 mmol/L (10-20); BUN (Urea Nitrogen) 27 mg/dL (9.8-20.1); Calc. Creatinine Clearance 64 mL/min (70-130); Calcium 8.8 mg/dL (7.8-10.44); Carbon Dioxide 29 mmol/L (23-31); Chloride 100 mmol/L (98-107); Estimated GFR 61; Glucose 97 mg/dL (83-110); Magnesium 2.3 mg/dL (1.6-2.6); Potassium 3.2 mmol/L (3.5-5.1); Sodium 140 mmol/L (136-145)
[2021-11-28] MEDS: hydrOXYzine 25 MG TAB PO PRN ×2 (05:38→17:12)
[2021-11-28] MEDS: Furosemide 20 MG/2 ML VIAL SLOW IVP SCH ×2 (05:39→13:16)
[2021-11-28] MEDS: Acetaminophen/Codeine 30-300mg Tablet PO PRN ×3 (05:39→20:22)
[2021-11-28] MEDS: Ketotifen Fumarate 0.025% Ophth Soln 5 ml Bottle EA EYE PRN ×2 (06:22→13:15)
[2021-11-28] MEDS ORDERED: NIFEdipine XL 30 MG TAB PO SCH (09:00)
[2021-11-28] MEDS: Carvedilol 6.25 MG TAB PO SCH ×2 (09:29→20:23)
[2021-11-28] MEDS: Bupropion 150 MG SR TAB PO SCH (09:29)
[2021-11-28] MEDS: Aspirin 81 mg Enteric Coated Tablet PO SCH (09:29)
[2021-11-28] MEDS: Heparin 5,000 UNITS/ML VIAL SC SCH ×2 (09:29→20:24)
[2021-11-28] MEDS: Meloxicam 7.5 MG TAB PO SCH (09:30)
[2021-11-28] MEDS: NIFEdipine XL 60 MG TAB PO SCH (09:30)
[2021-11-28] MEDS: Ondansetron PF 4 MG/2 ML Vial IVP PRN (17:50)
[2021-11-28] MEDS ORDERED: Artificial Tear Sol 15 ML BOT EA EYE PRN (17:54)
[2021-11-28] MEDS: Senokot 8.6 MG TAB PO SCH (20:23)
[2021-11-28] MEDS: Melatonin 3 MG TAB PO SCH (20:23)
[2021-11-28] MEDS: Atorvastatin Calcium 20 MG TAB PO SCH (20:23)
[2021-11-28] MEDS: Methocarbamol 500 MG TAB PO SCH (20:23)
[2021-11-28] MEDS: Cefepime 2 GM in Sodium Chloride 0.9% 100 ML IVPB SCH (20:36)
[2021-11-28] MEDS: cefTRIAXone\\ROCEPHIN 1 GM in Sodium Chloride 0.9% 100 ML IVPB SCH (20:55)
[2021-11-28] MEDS: Potassium Chloride 10 MEQ TAB PO SCH (21:16)
[2021-11-28] MEDS: Zolpidem Tartrate 5 MG TAB PO PRN (21:21)
[2021-11-29] MEDS: hydrOXYzine 25 MG TAB PO PRN ×3 (03:54→20:41)
[2021-11-29 04:45] LABS: Anion Gap 12 mmol/L (10-20); BUN (Urea Nitrogen) 29 mg/dL (9.8-20.1); Calc. Creatinine Clearance 60 mL/min (70-130); Calcium 8.8 mg/dL (7.8-10.44); Carbon Dioxide 30 mmol/L (23-31); Chloride 100 mmol/L (98-107); Estimated GFR 55; Glucose 114 mg/dL (83-110); Magnesium 2.2 mg/dL (1.6-2.6); Potassium 3.8 mmol/L (3.5-5.1); Sodium 138 mmol/L (136-145)
[2021-11-29] MEDS: Furosemide 20 MG/2 ML VIAL SLOW IVP SCH ×3 (05:26→20:41)
[2021-11-29] MEDS: Cefepime 2 GM in Sodium Chloride 0.9% 100 ML IVPB SCH ×2 (09:23→20:41)
[2021-11-29] MEDS: Carvedilol 6.25 MG TAB PO SCH ×2 (09:25→20:38)
[2021-11-29] MEDS: Potassium Chloride 10 MEQ TAB PO SCH ×2 (09:26→20:40)
[2021-11-29] MEDS: Aspirin 81 mg Enteric Coated Tablet PO SCH (09:26)
[2021-11-29] MEDS: Senokot 8.6 MG TAB PO SCH ×2 (09:27→20:39)
[2021-11-29] MEDS: NIFEdipine XL 60 MG TAB PO SCH (09:27)
[2021-11-29] MEDS: Heparin 5,000 UNITS/ML VIAL SC SCH ×2 (09:28→20:40)
[2021-11-29] MEDS: Polyethylene Glycol 3350 17 GM Packet PO SCH (09:28)
[2021-11-29] MEDS: Ondansetron PF 4 MG/2 ML Vial IVP PRN (09:39)
[2021-11-29] MEDS: Meloxicam 7.5 MG TAB PO SCH (09:40)
[2021-11-29] MEDS: Bupropion 150 MG SR TAB PO SCH (09:41)
[2021-11-29] MEDS: Acetaminophen/Codeine 30-300mg Tablet PO PRN ×2 (14:23→23:17)
[2021-11-29] MEDS: Melatonin 3 MG TAB PO SCH (20:39)
[2021-11-29] MEDS: Atorvastatin Calcium 20 MG TAB PO SCH (20:40)
[2021-11-29] MEDS: Methocarbamol 500 MG TAB PO SCH (20:42)
[2021-11-29] MEDS: Zolpidem Tartrate 5 MG TAB PO PRN (23:18)
[2021-11-30 05:00] LABS: Anion Gap 15 mmol/L (10-20); BUN (Urea Nitrogen) 30 mg/dL (9.8-20.1); Calc. Creatinine Clearance 55 mL/min (70-130); Calcium 8.9 mg/dL (7.8-10.44); Carbon Dioxide 29 mmol/L (23-31); Chloride 99 mmol/L (98-107); Estimated GFR 50; Glucose 95 mg/dL (83-110); Potassium 3.6 mmol/L (3.5-5.1); Sodium 139 mmol/L (136-145)
[2021-11-30] MEDS: Bupropion 150 MG SR TAB PO SCH (08:33)
[2021-11-30] MEDS: Meloxicam 7.5 MG TAB PO SCH (08:33)
[2021-11-30] MEDS: hydrOXYzine 25 MG TAB PO PRN ×2 (08:34→17:37)
[2021-11-30] MEDS: Carvedilol 6.25 MG TAB PO SCH ×2 (08:34→20:37)
[2021-11-30] MEDS: Aspirin 81 mg Enteric Coated Tablet PO SCH (08:34)
[2021-11-30] MEDS: Potassium Chloride 10 MEQ TAB PO SCH ×2 (08:34→20:36)
[2021-11-30] MEDS: NIFEdipine XL 60 MG TAB PO SCH (08:34)
[2021-11-30] MEDS: Senokot 8.6 MG TAB PO SCH ×2 (08:35→20:36)
[2021-11-30] MEDS: Acetaminophen/Codeine 30-300mg Tablet PO PRN ×2 (08:35→17:38)
[2021-11-30] MEDS: Polyethylene Glycol 3350 17 GM Packet PO SCH (08:35)
[2021-11-30] MEDS: Cefepime 2 GM in Sodium Chloride 0.9% 100 ML IVPB SCH ×2 (08:35→20:39)
[2021-11-30] MEDS: Furosemide 20 MG/2 ML VIAL SLOW IVP SCH ×3 (08:36→20:36)
[2021-11-30] MEDS: Heparin 5,000 UNITS/ML VIAL SC SCH ×2 (08:56→20:36)
[2021-11-30] MEDS ORDERED: Lidocaine 5% Patch TD SCH (13:15)
[2021-11-30] MEDS: Methocarbamol 500 MG TAB PO SCH (20:36)
[2021-11-30] MEDS: Zolpidem Tartrate 5 MG TAB PO PRN (20:36)
[2021-11-30] MEDS: Atorvastatin Calcium 20 MG TAB PO SCH (20:37)
[2021-11-30] MEDS: Melatonin 3 MG TAB PO SCH (20:37)
[2021-11-30] MEDS ORDERED: Transdermal Patch Removal TOP SCH (21:00)
[2021-12-01] MEDS: hydrOXYzine 25 MG TAB PO PRN ×2 (04:00→11:45)
[2021-12-01] MEDS: Acetaminophen/Codeine 30-300mg Tablet PO PRN (04:00)
[2021-12-01] MEDS ORDERED: Furosemide 40 MG TAB PO SCH (07:30)
[2021-12-01] MEDS ORDERED: Lidocaine 5% Patch TD SCH (09:00)
[2021-12-01] MEDS: Carvedilol 6.25 MG TAB PO SCH (09:20)
[2021-12-01] MEDS: Aspirin 81 mg Enteric Coated Tablet PO SCH (09:20)
[2021-12-01] MEDS: Bupropion 150 MG SR TAB PO SCH (09:20)
[2021-12-01] MEDS: Polyethylene Glycol 3350 17 GM Packet PO SCH (09:21)
[2021-12-01] MEDS: Heparin 5,000 UNITS/ML VIAL SC SCH (09:21)
[2021-12-01] MEDS: Meloxicam 7.5 MG TAB PO SCH (09:21)
[2021-12-01] MEDS: NIFEdipine XL 60 MG TAB PO SCH (09:21)
[2021-12-01] MEDS: Potassium Chloride 10 MEQ TAB PO SCH (09:22)
[2021-12-01] MEDS: Senokot 8.6 MG TAB PO SCH (09:22)
[2021-12-01] MEDS: Cefepime 2 GM in Sodium Chloride 0.9% 100 ML IVPB SCH (09:33)
[2021-12-01 12:08] VITALS: BP 143/63; TEMP 97.8
== END 2021-12-01 12:15 | disposition home health service (06) | DRG 315 ==
LOC: ERS 16:55 → 2NO 22:05 → OBSVTOIN 11-26 04:25
PROVIDERS: ADMIT Family Medicine; ATTEND Family Medicine
DX: I31.3 Pericardial effusion (noninflammatory) (principal); N39.0 Urinary tract infection, site not specified; I50.32 Chronic diastolic (congestive) heart failure; I47.1 Supraventricular tachycardia; Z20.822 Contact with and (suspected) exposure to COVID-19; K21.9 Gastro-esophageal reflux disease without esophagitis; I11.0 Hypertensive heart disease with heart failure; I25.10 Atherosclerotic heart disease of native coronary artery without angina pectoris; B96.5 Pseudomonas (aeruginosa) (mallei) (pseudomallei) as the cause of diseases classified elsewhere; M19.90 Unspecified osteoarthritis, unspecified site; F32.A Depression, unspecified; G47.33 Obstructive sleep apnea (adult) (pediatric); E78.5 Hyperlipidemia, unspecified; I49.1 Atrial premature depolarization; I07.1 Rheumatic tricuspid insufficiency; K59.00 Constipation, unspecified; Z91.011 Allergy to milk products; Z88.8 Allergy status to other drugs, medicaments and biological substances; Z28.21 Immunization not carried out because of patient refusal; Z91.018 Allergy to other foods; Z79.899 Other long term (current) drug therapy; Z79.82 Long term (current) use of aspirin; Z87.442 Personal history of urinary calculi; Z90.49 Acquired absence of other specified parts of digestive tract; Z90.710 Acquired absence of both cervix and uterus; Z95.5 Presence of coronary angioplasty implant and graft; Z82.49 Family history of ischemic heart disease and other diseases of the circulatory system
CPT/HCPCS: 36415; 36416; 71045; 71275; 80048; 80053; 81003; 81015; 83605; 83735; 83880; 84484; 85025; 85379; 85610; 85730; 87040; 87076; 87077; 87086; 87186; 93005; 93306; 96365; 96375; G0378; J0692; J0696; J1644; J1940; J2405; J3490; Q0162; Q9967; U0003; U0005

== ENCOUNTER 2022-02-18 11:41 | Outpatient (CLI) | payer MEDICARE, BC | END 2022-02-18 11:42 | disposition home or self-care (01) | LOC: BICRAD 11:41 | PROVIDERS: ATTEND Physician Assistant Medical | DX: R11.2 Nausea with vomiting, unspecified (principal); M16.0 Bilateral primary osteoarthritis of hip; M47.816 Spondylosis without myelopathy or radiculopathy, lumbar region; M46.1 Sacroiliitis, not elsewhere classified; Z87.19 Personal history of other diseases of the digestive system; Z98.890 Other specified postprocedural states | CPT/HCPCS: 74019 ==

== ENCOUNTER 2022-06-06 13:18 | Outpatient (CLI) | payer MEDICARE, BC | END 2022-06-06 13:19 | disposition home or self-care (01) | LOC: RAD 13:18 | PROVIDERS: ATTEND Thoracic Surgery (Cardiothoracic Vascular Surgery) | DX: R13.10 Dysphagia, unspecified (principal); K21.9 Gastro-esophageal reflux disease without esophagitis | CPT/HCPCS: 71045 ==

== ENCOUNTER 2023-05-27 14:24 | Inpatient (IN) | payer BC, MEDICARE ==
[2023-05-27 15:38] LABS: #Basophils 0.1 thou/uL (0.0-0.2); #Eosinphils 0.2 thou/uL (0.0-0.7); #Monocytes 0.7 thou/uL (0.11-0.59); #Neutrophils 6.8 thou/uL (1.40-6.50); %Basophils 0.8 % (0.0-1.0); %Eosinophils 2.2 % (0.0-10.0); %Lymphocytes 12.9 % (21.0-51.0); %Monocytes 8.1 % (0.0-10.0); %Neutrophils 75.7 % (42.0-75.0); Hematocrit 31.1 % (36.0-47.0); Hemoglobin 9.6 g/dL (12.0-16.0); Mean Corpuscular HGB CONC 30.9 g/dL (32.0-36.0); Mean Corpuscular Hemoglobin 28.2 pg (27.0-31.0); Mean Corpuscular Volume 91.5 fl (78.0-98.0); Mean Platelet Volume 9.5 fL (7.4-10.4); Platelet Count 274 10x3/uL (130-400); RBC Distribution Width 14.7 % (11.5-14.5)
[2023-05-27 16:02] LABS: ALT (SGPT) 8 U/L (8-55); AST (SGOT) 13 U/L (5-34); Albumin 3.1 g/dL (3.4-4.8); Alkaline Phosphatase 87 U/L (40-110); Anion Gap 12 mmol/L (10-20); BUN (Urea Nitrogen) 14 mg/dL (9.8-20.1); Bilirubin, Total 0.3 mg/dL (0.2-1.2); Calc. Creatinine Clearance 0 mL/min (70-130); Calcium 8.1 mg/dL (7.8-10.44); Carbon Dioxide 20 mmol/L (23-31); Chloride 111 mmol/L (98-107); Estimated GFR 60; Globulin 2.2 g/dL (2.4-3.5); Glucose 91 mg/dL (83-110); Lipase 22 U/L (8-78); Potassium 4.1 mmol/L (3.5-5.1); Protein, Total 5.3 g/dL (5.8-8.1); Sodium 139 mmol/L (136-145)
[2023-05-27 16:16] LABS: Critical Call Chem Troponin I NUR.ALP1 @1615; Troponin I 0.487 ng/mL (< 0.028)
[2023-05-27] MEDS ORDERED: Metoclopramide HCl 10 MG (2 mL) VIAL ONE (16:29)
[2023-05-27] MEDS ORDERED: diphenhydrAMINE 50 MG/ML VIAL ONE (16:29)
[2023-05-27] MEDS ORDERED: Acetaminophen 500 MG TAB ONE (16:29)
[2023-05-27 17:18] LABS: SARS-CoV-2 NAA Rapid Test Not Detected (NotDetected)
[2023-05-27 17:50] LABS: Bacteria/HPF None Seen HPF (None Seen); Bilirubin Negative (Negative); Blood, Urine Negative (Negative); CAUTI Indications for Culture Pelvic or flank pain; Clarity Turbid (Clear); Glucose, Urine (Dipstick) Normal (Negative); Ketone, Urine Negative (Negative); Leukocyte 250 Leu/uL (Negative); Nitrite 2+ (Negative); Protein, Urine (Dipstick) Negative (Neg-Trace); RBC/HPF 0-3 HPF (0-3); Specific Gravity, Urine 1.017 (1.002-1.036); Squamous Epithelial 0-3 HPF (0-3); Urobilinogen Normal mg/dL (Less than 2); pH, Urine 6.5 (5.0-9.0)
[2023-05-27] MEDS ORDERED: Nitroglycerin 2% Ointment 1 INCH/1 GM Packet ONE (17:50)
[2023-05-27] MEDS ORDERED: Aspirin Chewable 81 MG TAB ONE (17:50)
[2023-05-27 17:53] LABS: Urine Culture Reflex Yes Yes
[2023-05-27] MEDS ORDERED: Morphine 4 MG/ML VIAL ONE (17:59)
[2023-05-27] MEDS ORDERED: Acetaminophen 325 MG TAB PO PRN (20:05)
[2023-05-27] MEDS ORDERED: Acetaminophen 650 MG Suppository PR PRN (20:05)
[2023-05-27] MEDS ORDERED: Ondansetron PF 4 MG/2 ML Vial IVP PRN (20:05)
[2023-05-27] MEDS ORDERED: Ondansetron ODT 4 MG TAB PO PRN (20:05)
[2023-05-27] MEDS ORDERED: Pantoprazole 40 MG VIAL IVP SCH (20:30)
[2023-05-27 20:42] LABS: Critical Call Chem Troponin I NUR.KB14 @2042; Troponin I 1.111 ng/mL (< 0.028)
[2023-05-27] MEDS: Enoxaparin 80 MG (0.8 mL) SYRINGE SC SCH (22:10)
[2023-05-28 00:46] LABS: Critical Call Chem Troponin I RESULT DECREASING; Troponin I 0.834 ng/mL (< 0.028)
[2023-05-28] MEDS ORDERED: diphenhydrAMINE 25 MG CAP PO SCH (01:15)
[2023-05-28 05:30] LABS: #Basophils 0.1 thou/uL (0.0-0.2); #Eosinphils 0.3 thou/uL (0.0-0.7); #Monocytes 0.7 thou/uL (0.11-0.59); #Neutrophils 6.4 thou/uL (1.40-6.50); %Basophils 0.7 % (0.0-1.0); %Eosinophils 3.1 % (0.0-10.0); %Lymphocytes 21.5 % (21.0-51.0); %Monocytes 7.6 % (0.0-10.0); %Neutrophils 66.6 % (42.0-75.0); Hematocrit 32.9 % (36.0-47.0); Mean Corpuscular HGB CONC 30.4 g/dL (32.0-36.0); Mean Corpuscular Hemoglobin 27.3 pg (27.0-31.0); Mean Corpuscular Volume 89.9 fl (78.0-98.0); Mean Platelet Volume 9.7 fL (7.4-10.4); Platelet Count 319 10x3/uL (130-400); RBC Distribution Width 14.8 % (11.5-14.5); Red Blood Cell (RBC) Count 3.66 mill/uL (4.20-5.40); White Blood Cell (WBC) Count 9.6 10x3/uL (4.8-10.8)
[2023-05-28 05:31] LABS: Hemoglobin A1c 4.6 % (4.0-6.0)
[2023-05-28 05:52] LABS: Anion Gap 11 mmol/L (10-20); BUN (Urea Nitrogen) 14 mg/dL (9.8-20.1); Calc. Creatinine Clearance 65 mL/min (70-130); Calcium 8.1 mg/dL (7.8-10.44); Carbon Dioxide 22 mmol/L (23-31); Chloride 110 mmol/L (98-107); Estimated GFR 68; Glucose 82 mg/dL (83-110); Potassium 3.9 mmol/L (3.5-5.1); Sodium 139 mmol/L (136-145)
[2023-05-28] MEDS ORDERED: Loratadine 10 MG TAB PO SCH (09:05)
[2023-05-28] MEDS ORDERED: Fluticasone Propionate Nasal Spray 16 gm Bottle NASAL SCH (09:05)
[2023-05-28] MEDS: Aspirin Chewable 81 MG TAB PO SCH (09:53)
[2023-05-28] MEDS: Pantoprazole 40 MG VIAL IVP SCH (09:54)
[2023-05-28] MEDS: Enoxaparin 80 MG (0.8 mL) SYRINGE SC SCH ×2 (09:54→20:15)
[2023-05-28] MEDS: Carvedilol 6.25 MG TAB PO SCH ×2 (09:54→20:16)
[2023-05-28] MEDS: HYDROcodone/Acetaminophen 5/325 mg Tablet PO PRN ×2 (09:55→20:17)
[2023-05-28] MEDS: Nitroglycerin 0.4 MG TAB (25 Tab Bottle) SL PRN ×2 (11:11→11:41)
[2023-05-28] MEDS ORDERED: Nitroglycerin 0.4 MG TAB 1 EACH SL SCH (11:30)
[2023-05-28] MEDS ORDERED: Atorvastatin Calcium 40 MG TAB PO SCH (11:30)
[2023-05-28] MEDS: Nitroglycerin 2% Ointment 1 INCH/1 GM Packet TOP SCH ×2 (11:34→16:33)
[2023-05-28] MEDS: Morphine 2 MG/ML VIAL SLOW IVP PRN (11:36)
[2023-05-28] MEDS ORDERED: Morphine 2 MG/ML VIAL SLOW IVP SCH (12:30)
[2023-05-28 13:22] LABS: Critical Call Chem Troponin I NUR.SL10 @1322; Troponin I 1.159 ng/mL (< 0.028)
[2023-05-28] MEDS ORDERED: Nitroglycerin 50 MG/250 ML BOT 250 ML IVPB SCH (13:45)
[2023-05-28] MEDS ORDERED: Azelastine 137 MCG/NASAL Spray 30 ML NS PRN (14:12)
[2023-05-28 14:31] LABS: Critical Call Chem Troponin I NUR.SL10 @1432
[2023-05-28] MEDS: cefTRIAXone\\ROCEPHIN 1 GM in Sodium Chloride 0.9% 100 ML IVPB SCH (15:12)
[2023-05-28] MEDS: Nitroglycerin 50 MG/250 ML BOT 250 ML IVPB SCH ×2 (15:13→22:34)
[2023-05-28 19:01] LABS: Critical Call Chem Troponin I NUR.PLS @1900; Troponin I 0.927 ng/mL (< 0.028)
[2023-05-28] MEDS: Donepezil HCl 5 MG TAB PO SCH (20:15)
[2023-05-29] MEDS: Nitroglycerin 2% Ointment 1 INCH/1 GM Packet TOP SCH ×2 (00:54→05:54)
[2023-05-29 05:11] LABS: #Eosinphils 0.1 thou/uL (0.0-0.7); #Monocytes 0.6 thou/uL (0.11-0.59); #Neutrophils 5.6 thou/uL (1.40-6.50); %Basophils 0.6 % (0.0-1.0); %Eosinophils 0.7 % (0.0-10.0); %Lymphocytes 13.6 % (21.0-51.0); %Neutrophils 76.8 % (42.0-75.0); Hematocrit 26.5 % (36.0-47.0); Mean Corpuscular HGB CONC 30.2 g/dL (32.0-36.0); Mean Corpuscular Hemoglobin 28.1 pg (27.0-31.0); Mean Platelet Volume 9.6 fL (7.4-10.4); Platelet Count 241 10x3/uL (130-400); RBC Distribution Width 14.8 % (11.5-14.5); Red Blood Cell (RBC) Count 2.85 mill/uL (4.20-5.40); White Blood Cell (WBC) Count 7.2 10x3/uL (4.8-10.8)
[2023-05-29] MEDS: HYDROcodone/Acetaminophen 5/325 mg Tablet PO PRN ×2 (05:25→21:36)
[2023-05-29] MEDS: Nitroglycerin 50 MG/250 ML BOT 250 ML IVPB SCH ×3 (05:25→21:37)
[2023-05-29] MEDS: Guaifenesin DM 100-10/5 ML UDCUP PO PRN (06:15)
[2023-05-29 06:35] LABS: Anion Gap 9 mmol/L (10-20); BUN (Urea Nitrogen) 15 mg/dL (9.8-20.1); Calc. Creatinine Clearance 67 mL/min (70-130); Calcium 7.9 mg/dL (7.8-10.44); Carbon Dioxide 21 mmol/L (23-31); Chloride 110 mmol/L (98-107); Estimated GFR 70; Glucose 111 mg/dL (83-110); Potassium 4.1 mmol/L (3.5-5.1); Sodium 136 mmol/L (136-145)
[2023-05-29] MEDS ORDERED: Oxymetazoline HCl 0.05% (30 ML BOT) NS PRN (08:11)
[2023-05-29] MEDS ORDERED: Metoclopramide HCl 10 MG (2 mL) VIAL IVP PRN (08:13)
[2023-05-29] MEDS: Sodium Chloride 0.45% 1,000 ML IV SCH ×2 (08:23→21:38)
[2023-05-29] MEDS: Bupropion 150 MG SR.TAB PO SCH (08:24)
[2023-05-29] MEDS: Carvedilol 6.25 MG TAB PO SCH ×2 (08:24→21:35)
[2023-05-29] MEDS: Fluticasone Propionate Nasal Spray 16 gm Bottle NASAL SCH (08:24)
[2023-05-29] MEDS: Pantoprazole 40 MG VIAL IVP SCH ×2 (08:24→21:36)
[2023-05-29] MEDS: Aspirin Chewable 81 MG TAB PO SCH (08:24)
[2023-05-29] MEDS: Enoxaparin 80 MG (0.8 mL) SYRINGE SC SCH ×3 (08:24→21:37)
[2023-05-29] MEDS: NIFEdipine XL 60 MG ER.TAB PO SCH (08:25)
[2023-05-29] MEDS: Loratadine 10 MG TAB PO SCH (08:25)
[2023-05-29] MEDS ORDERED: Heparin 10,000 UNITS/ 10 ML VIAL ONE (09:15)
[2023-05-29] MEDS ORDERED: Adenosine 6 mg (2 mL) VIAL ONE (09:15)
[2023-05-29] MEDS ORDERED: Verapamil 5 MG/2 ML VIAL ONE (09:15)
[2023-05-29] MEDS ORDERED: Nitroglycerin 50 MG/250 ML BOT 0 ML ONE (09:16)
[2023-05-29] MEDS ORDERED: Lidocaine 1% (PF) 30 ML VIAL ONE (09:16)
[2023-05-29] MEDS ORDERED: Polyethylene Glycol 3350 17 GM Packet PO PRN (09:57)
[2023-05-29] MEDS: Morphine 2 MG/ML VIAL SLOW IVP PRN ×3 (09:59→19:07)
[2023-05-29 10:26] LABS: Critical Call Chem Troponin I @DECREASING; Troponin I 0.637 ng/mL (< 0.028)
[2023-05-29] MEDS: niCARdipine 25 MG in Sodium Chloride 0.9% 250 ML 250 ML IVPB SCH ×3 (10:53→18:42)
[2023-05-29 11:25] LABS: Critical Call Chem Troponin I NUR.CLW1 @1124; Troponin I 0.515 ng/mL (< 0.028)
[2023-05-29] MEDS ORDERED: Ondansetron PF 4 MG/2 ML Vial IVP SCH (12:30)
[2023-05-29] MEDS: cefTRIAXone\\ROCEPHIN 1 GM in Sodium Chloride 0.9% 100 ML IVPB SCH (13:34)
[2023-05-29 15:56] LABS: #Eosinphils 0.2 thou/uL (0.0-0.7); #Neutrophils 6.5 thou/uL (1.40-6.50); %Basophils 0.4 % (0.0-1.0); %Eosinophils 1.9 % (0.0-10.0); %Lymphocytes 15.7 % (21.0-51.0); %Monocytes 10.9 % (0.0-10.0); %Neutrophils 70.8 % (42.0-75.0); Hematocrit 29.9 % (36.0-47.0); Hematocrit 30.3 % (36.0-47.0); Hemoglobin 9.2 g/dL (12.0-16.0); Mean Corpuscular HGB CONC 29.7 g/dL (32.0-36.0); Mean Corpuscular Volume 94.1 fl (78.0-98.0); Mean Platelet Volume 9.4 fL (7.4-10.4); Platelet Count 268 10x3/uL (130-400); RBC Distribution Width 14.7 % (11.5-14.5); Red Blood Cell (RBC) Count 3.22 mill/uL (4.20-5.40); White Blood Cell (WBC) Count 9.2 10x3/uL (4.8-10.8)
[2023-05-29] MEDS: Atorvastatin Calcium 40 MG TAB PO SCH (21:36)
[2023-05-29] MEDS: Ondansetron PF 4 MG/2 ML Vial IVP SCH (21:37)
[2023-05-29] MEDS: diphenhydrAMINE 25 MG CAP PO PRN (22:14)
[2023-05-30] MEDS: Morphine 2 MG/ML VIAL SLOW IVP PRN (04:14)
[2023-05-30] MEDS: diphenhydrAMINE 25 MG CAP PO PRN ×2 (04:20→23:37)
[2023-05-30 05:50] LABS: #Eosinphils 0.4 thou/uL (0.0-0.7); #Monocytes 0.8 thou/uL (0.11-0.59); #Neutrophils 5.6 thou/uL (1.40-6.50); %Basophils 0.5 % (0.0-1.0); %Eosinophils 5.2 % (0.0-10.0); %Lymphocytes 17.2 % (21.0-51.0); %Monocytes 9.6 % (0.0-10.0); %Neutrophils 67.1 % (42.0-75.0); Hematocrit 27.2 % (36.0-47.0); Hemoglobin 8.4 g/dL (12.0-16.0); Mean Corpuscular HGB CONC 30.9 g/dL (32.0-36.0); Mean Corpuscular Hemoglobin 28.3 pg (27.0-31.0); Mean Corpuscular Volume 91.6 fl (78.0-98.0); Mean Platelet Volume 9.9 fL (7.4-10.4); Platelet Count 254 10x3/uL (130-400); RBC Distribution Width 14.6 % (11.5-14.5); Red Blood Cell (RBC) Count 2.97 mill/uL (4.20-5.40); White Blood Cell (WBC) Count 8.4 10x3/uL (4.8-10.8)
[2023-05-30 06:17] LABS: ALT (SGPT) 8 U/L (8-55); AST (SGOT) 15 U/L (5-34); Albumin 2.5 g/dL (3.4-4.8); Alkaline Phosphatase 65 U/L (40-110); Anion Gap 10 mmol/L (10-20); BUN (Urea Nitrogen) 10 mg/dL (9.8-20.1); Bilirubin, Total 0.3 mg/dL (0.2-1.2); Calc. Creatinine Clearance 74 mL/min (70-130); Calcium 7.8 mg/dL (7.8-10.44); Carbon Dioxide 21 mmol/L (23-31); Chloride 107 mmol/L (98-107); Estimated GFR 79; Glucose 94 mg/dL (83-110); Protein, Total 4.5 g/dL (5.8-8.1); Sodium 134 mmol/L (136-145)
[2023-05-30] MEDS: NIFEdipine XL 60 MG ER.TAB PO SCH (08:52)
[2023-05-30] MEDS: Loratadine 10 MG TAB PO SCH (08:52)
[2023-05-30] MEDS: Aspirin Chewable 81 MG TAB PO SCH (08:52)
[2023-05-30] MEDS: Carvedilol 6.25 MG TAB PO SCH ×2 (08:52→20:21)
[2023-05-30] MEDS: Bupropion 150 MG SR.TAB PO SCH (08:53)
[2023-05-30] MEDS: Fluticasone Propionate Nasal Spray 16 gm Bottle NASAL SCH (08:53)
[2023-05-30] MEDS: Enoxaparin 80 MG (0.8 mL) SYRINGE SC SCH ×2 (08:54→20:22)
[2023-05-30] MEDS: Ondansetron PF 4 MG/2 ML Vial IVP SCH ×2 (08:54→20:21)
[2023-05-30] MEDS: Polyethylene Glycol 3350 17 GM Packet PO SCH (08:54)
[2023-05-30] MEDS: Pantoprazole 40 MG VIAL IVP SCH ×2 (08:54→20:21)
[2023-05-30] MEDS: HYDROcodone/Acetaminophen 5/325 mg Tablet PO PRN ×2 (12:04→20:55)
[2023-05-30 13:12] VITALS: BMI 29.8
[2023-05-30] MEDS: cefTRIAXone\\ROCEPHIN 1 GM in Sodium Chloride 0.9% 100 ML IVPB SCH (13:19)
[2023-05-30] MEDS ORDERED: Lidocaine 4% Patch TD SCH (14:15)
[2023-05-30] MEDS: Lidocaine 4% Patch TD SCH (14:46)
[2023-05-30] MEDS: Atorvastatin Calcium 40 MG TAB PO SCH (20:21)
[2023-05-30] MEDS ORDERED: Melatonin 3 MG TAB PO PRN (22:43)
[2023-05-31] MEDS: Transdermal Patch Removal TOP SCH (02:53)
[2023-05-31] MEDS: HYDROcodone/Acetaminophen 5/325 mg Tablet PO PRN (05:48)
[2023-05-31] MEDS ORDERED: Heparin 10,000 UNITS/ 10 ML VIAL ONE (06:32)
[2023-05-31] MEDS ORDERED: Adenosine 6 mg (2 mL) VIAL ONE (06:32)
[2023-05-31] MEDS ORDERED: Nitroglycerin 50 MG/250 ML BOT 0 ML ONE (06:32)
[2023-05-31 06:58] LABS: #Eosinphils 0.3 thou/uL (0.0-0.7); #Monocytes 0.6 thou/uL (0.11-0.59); #Neutrophils 4.9 thou/uL (1.40-6.50); %Basophils 0.4 % (0.0-1.0); %Eosinophils 3.9 % (0.0-10.0); %Lymphocytes 15.6 % (21.0-51.0); %Monocytes 8.8 % (0.0-10.0); Hematocrit 23.2 % (36.0-47.0); Hemoglobin 7.3 g/dL (12.0-16.0); Mean Corpuscular HGB CONC 31.5 g/dL (32.0-36.0); Mean Corpuscular Hemoglobin 27.8 pg (27.0-31.0); Mean Corpuscular Volume 88.2 fl (78.0-98.0); Mean Platelet Volume 9.8 fL (7.4-10.4); Platelet Count 225 10x3/uL (130-400); RBC Distribution Width 14.6 % (11.5-14.5); Red Blood Cell (RBC) Count 2.63 mill/uL (4.20-5.40); White Blood Cell (WBC) Count 6.9 10x3/uL (4.8-10.8)
[2023-05-31] MEDS ORDERED: Midazolam HCl 2 mg/2 ml Vial ONE (07:23)
[2023-05-31] MEDS ORDERED: fentaNYL 50 mcg/mL 1 mL Vial ONE (07:23)
[2023-05-31 07:30] LABS: Anion Gap 10 mmol/L (10-20); BUN (Urea Nitrogen) 12 mg/dL (9.8-20.1); Calc. Creatinine Clearance 78 mL/min (70-130); Calcium 7.7 mg/dL (7.8-10.44); Carbon Dioxide 22 mmol/L (23-31); Chloride 108 mmol/L (98-107); Estimated GFR 84; Glucose 90 mg/dL (83-110); Potassium 3.9 mmol/L (3.5-5.1); Sodium 136 mmol/L (136-145)
[2023-05-31] MEDS ORDERED: Acetaminophen/Codeine 30-300mg Tablet PO PRN (08:09)
[2023-05-31] MEDS ORDERED: Nitroglycerin 0.4 MG TAB (25 Tab Bottle) SL PRN (08:09)
[2023-05-31] MEDS ORDERED: Sodium Chloride 0.9% 200 ML IV PRN (08:09)
[2023-05-31] MEDS ORDERED: Sodium Chloride 0.9% 1,000 ML IV SCH (08:15)
[2023-05-31] MEDS: Enoxaparin 80 MG (0.8 mL) SYRINGE SC SCH (10:01)
[2023-05-31] MEDS: Carvedilol 6.25 MG TAB PO SCH ×2 (10:05→20:51)
[2023-05-31] MEDS: Aspirin Chewable 81 MG TAB PO SCH (10:05)
[2023-05-31] MEDS: Loratadine 10 MG TAB PO SCH (10:06)
[2023-05-31] MEDS: NIFEdipine XL 60 MG ER.TAB PO SCH (10:06)
[2023-05-31] MEDS: Pantoprazole 40 MG VIAL IVP SCH ×2 (10:06→20:52)
[2023-05-31] MEDS: Bupropion 150 MG SR.TAB PO SCH (10:06)
[2023-05-31] MEDS: Polyethylene Glycol 3350 17 GM Packet PO SCH (10:07)
[2023-05-31] MEDS: Ondansetron PF 4 MG/2 ML Vial IVP SCH ×2 (10:07→20:52)
[2023-05-31] MEDS: Fluticasone Propionate Nasal Spray 16 gm Bottle NASAL SCH (10:07)
[2023-05-31] MEDS ORDERED: Iopamidol 370 76% 100 ML VIAL ONE ×2 (13:16→13:36)
[2023-05-31] MEDS: Lidocaine 4% Patch TD SCH (14:21)
[2023-05-31] MEDS: Acetaminophen/Codeine 30-300mg Tablet PO PRN ×2 (14:21→20:54)
[2023-05-31] MEDS: cefTRIAXone\\ROCEPHIN 1 GM in Sodium Chloride 0.9% 100 ML IVPB SCH (14:21)
[2023-05-31] MEDS: Guaifenesin DM 100-10/5 ML UDCUP PO PRN (18:40)
[2023-05-31] MEDS: Donepezil HCl 5 MG TAB PO SCH (20:51)
[2023-05-31] MEDS: Atorvastatin Calcium 40 MG TAB PO SCH (20:51)
[2023-05-31] MEDS: guaiFENesin/DM ER PO SCH (20:51)
[2023-06-01] MEDS: Transdermal Patch Removal TOP SCH (04:43)
[2023-06-01] MEDS: Acetaminophen/Codeine 30-300mg Tablet PO PRN (05:34)
[2023-06-01] MEDS: Polyethylene Glycol 3350 17 GM Packet PO SCH (08:18)
[2023-06-01] MEDS: Aspirin Chewable 81 MG TAB PO SCH (08:20)
[2023-06-01] MEDS: Bupropion 150 MG SR.TAB PO SCH (08:20)
[2023-06-01] MEDS: Carvedilol 6.25 MG TAB PO SCH (08:20)
[2023-06-01] MEDS: Loratadine 10 MG TAB PO SCH (08:20)
[2023-06-01] MEDS: NIFEdipine XL 60 MG ER.TAB PO SCH (08:20)
[2023-06-01] MEDS: Ondansetron PF 4 MG/2 ML Vial IVP SCH (08:20)
[2023-06-01] MEDS: Fluticasone Propionate Nasal Spray 16 gm Bottle NASAL SCH (08:23)
[2023-06-01] MEDS: guaiFENesin/DM ER PO SCH (08:23)
[2023-06-01] MEDS: Pantoprazole 40 MG VIAL IVP SCH (08:24)
[2023-06-01 13:02] VITALS: BP 140/62; TEMP 97.1
== END 2023-06-01 16:49 | disposition home or self-care (01) | DRG 281 ==
LOC: ERS 14:24 → 2SW 18:37 → CCU 05-28 14:45 → 2SW 05-30 22:27
PROVIDERS: ADMIT Internal Medicine; ATTEND Emergency Medicine
PROC: 4A023N7 Measurement of Cardiac Sampling and Pressure, Left Heart, Percutaneous Approach (ICD-10-PCS; principal; 2023-05-31)
PROC: B2111ZZ Fluoroscopy of Multiple Coronary Arteries using Low Osmolar Contrast (ICD-10-PCS; 2023-05-31)
PROC: B2151ZZ Fluoroscopy of Left Heart using Low Osmolar Contrast (ICD-10-PCS; 2023-05-31)
DX: I21.4 Non-ST elevation (NSTEMI) myocardial infarction (principal); E87.20 Acidosis, unspecified; I47.10 Supraventricular tachycardia, unspecified; I50.32 Chronic diastolic (congestive) heart failure; N39.0 Urinary tract infection, site not specified; T82.855A Stenosis of coronary artery stent, initial encounter; I25.10 Atherosclerotic heart disease of native coronary artery without angina pectoris; K21.9 Gastro-esophageal reflux disease without esophagitis; I11.0 Hypertensive heart disease with heart failure; M19.90 Unspecified osteoarthritis, unspecified site; D64.9 Anemia, unspecified; J30.9 Allergic rhinitis, unspecified; I07.1 Rheumatic tricuspid insufficiency; G43.909 Migraine, unspecified, not intractable, without status migrainosus; F41.9 Anxiety disorder, unspecified; F32.A Depression, unspecified; I16.0 Hypertensive urgency; F39 Unspecified mood [affective] disorder; K59.09 Other constipation; K44.9 Diaphragmatic hernia without obstruction or gangrene; Z88.2 Allergy status to sulfonamides; Z98.890 Other specified postprocedural states; Z88.8 Allergy status to other drugs, medicaments and biological substances; Z90.710 Acquired absence of both cervix and uterus; Z88.5 Allergy status to narcotic agent; Z91.040 Latex allergy status; Z91.018 Allergy to other foods; Z91.09 Other allergy status, other than to drugs and biological substances; Z95.5 Presence of coronary angioplasty implant and graft; Z79.82 Long term (current) use of aspirin; Z79.899 Other long term (current) drug therapy; Z11.52 Encounter for screening for COVID-19
CPT/HCPCS: 36415; 36416; 70450; 71045; 74176; 80048; 80053; 81001; 82274; 83036; 83605; 83690; 84484; 85025; 87077; 87086; 87186; 93005; 93010; 93306; 93458; 96365; 96366; 96375; 99152; C1769; C1894; C9113; J0153; J0696; J1200; J1644; J1650; J2001; J2250; J2270; J2272; J2405; J2765; J3010; J3490; J7050; Q9967

== ENCOUNTER 2023-06-07 15:23 | Inpatient (IN) | payer MEDICARE ==
[2023-06-07 18:16] LABS: #Eosinphils 0.3 thou/uL (0.0-0.7); #Monocytes 0.8 thou/uL (0.11-0.59); #Neutrophils 4.8 thou/uL (1.40-6.50); %Basophils 0.6 % (0.0-1.0); %Eosinophils 3.7 % (0.0-10.0); %Lymphocytes 17.1 % (21.0-51.0); Hematocrit 25.4 % (36.0-47.0); Hemoglobin 8.1 g/dL (12.0-16.0); Mean Corpuscular HGB CONC 31.9 g/dL (32.0-36.0); Mean Corpuscular Hemoglobin 27.2 pg (27.0-31.0); Mean Corpuscular Volume 85.2 fl (78.0-98.0); Mean Platelet Volume 9.7 fL (7.4-10.4); Platelet Count 309 10x3/uL (130-400); Red Blood Cell (RBC) Count 2.98 mill/uL (4.20-5.40); White Blood Cell (WBC) Count 7.1 10x3/uL (4.8-10.8)
[2023-06-07 18:42] LABS: Troponin I 0.015 ng/mL (< 0.028)
[2023-06-07 18:45] LABS: ALT (SGPT) 8 U/L (8-55); AST (SGOT) 12 U/L (5-34); Albumin 3.2 g/dL (3.4-4.8); Alkaline Phosphatase 68 U/L (40-110); Anion Gap 12 mmol/L (10-20); BUN (Urea Nitrogen) 11 mg/dL (9.8-20.1); Bilirubin, Total 0.2 mg/dL (0.2-1.2); Calc. Creatinine Clearance 0 mL/min (70-130); Calcium 8.1 mg/dL (7.8-10.44); Carbon Dioxide 23 mmol/L (23-31); Chloride 106 mmol/L (98-107); Estimated GFR 76; Globulin 2.3 g/dL (2.4-3.5); Glucose 81 mg/dL (83-110); Potassium 3.5 mmol/L (3.5-5.1); Protein, Total 5.5 g/dL (5.8-8.1); Sodium 137 mmol/L (136-145)
[2023-06-07] MEDS ORDERED: Senokot S 8.6-50 MG TAB PO PRN (20:39)
[2023-06-07] MEDS ORDERED: Acetaminophen 650 MG Suppository PR PRN (20:39)
[2023-06-07] MEDS ORDERED: Ferrous Sulfate 325 MG TAB PO SCH (20:45)
[2023-06-07] MEDS ORDERED: Enoxaparin 30 MG (0.3 mL) SYRINGE SC SCH (20:45)
[2023-06-07] MEDS ORDERED: Furosemide 40 MG (4 mL) VIAL ONE (20:52)
[2023-06-07 21:35] LABS: Bilirubin Negative (Negative); Blood, Urine Negative (Negative); CAUTI Indications for Culture Dysuria,urgency,freq; Clarity Clear (Clear); Glucose, Urine (Dipstick) Normal (Negative); Ketone, Urine Negative (Negative); Leukocyte 500 Leu/uL (Negative); Nitrite 1+ (Negative); Protein, Urine (Dipstick) Negative (Neg-Trace); Specific Gravity, Urine 1.009 (1.002-1.036); Squamous Epithelial None Seen HPF (0-3); Urobilinogen Normal mg/dL (Less than 2)
[2023-06-07 21:49] LABS: Bacteria/HPF 4+ HPF (None Seen); RBC/HPF 0-3 HPF (0-3)
[2023-06-07 21:50] LABS: Urine Culture Reflex No No
[2023-06-07] MEDS ORDERED: Carvedilol 6.25 MG TAB ONE (23:20)
[2023-06-07] MEDS ORDERED: Atorvastatin Calcium 40 MG TAB ONE (23:20)
[2023-06-07] MEDS ORDERED: Enoxaparin 30 MG (0.3 mL) SYRINGE ONE (23:21)
[2023-06-07] MEDS: Atorvastatin Calcium 40 MG TAB PO SCH (23:24)
[2023-06-07] MEDS: Carvedilol 6.25 MG TAB PO SCH (23:24)
[2023-06-08] MEDS ORDERED: Acetaminophen 325 MG TAB ONE (00:49)
[2023-06-08] MEDS: Acetaminophen 325 MG TAB PO PRN (00:53)
[2023-06-08] MEDS ORDERED: Acetaminophen/Codeine 30-300mg Tablet ONE ×2 (04:07→10:21)
[2023-06-08] MEDS: Acetaminophen/Codeine 30-300mg Tablet PO PRN ×4 (04:15→22:33)
[2023-06-08 05:59] LABS: #Eosinphils 0.2 thou/uL (0.0-0.7); #Monocytes 0.9 thou/uL (0.11-0.59); #Neutrophils 5.7 thou/uL (1.40-6.50); %Basophils 0.5 % (0.0-1.0); %Eosinophils 2.7 % (0.0-10.0); %Lymphocytes 12.7 % (21.0-51.0); %Neutrophils 72.6 % (42.0-75.0); Hematocrit 25.9 % (36.0-47.0); Hemoglobin 7.9 g/dL (12.0-16.0); Mean Corpuscular HGB CONC 30.5 g/dL (32.0-36.0); Mean Corpuscular Hemoglobin 26.2 pg (27.0-31.0); Mean Corpuscular Volume 85.8 fl (78.0-98.0); Platelet Count 308 10x3/uL (130-400); RBC Distribution Width 16.2 % (11.5-14.5); Red Blood Cell (RBC) Count 3.02 mill/uL (4.20-5.40); White Blood Cell (WBC) Count 7.8 10x3/uL (4.8-10.8)
[2023-06-08 06:24] LABS: Anion Gap 9 mmol/L (10-20); BUN (Urea Nitrogen) 9 mg/dL (9.8-20.1); Calc. Creatinine Clearance 65 mL/min (70-130); Calcium 8.2 mg/dL (7.8-10.44); Carbon Dioxide 28 mmol/L (23-31); Chloride 104 mmol/L (98-107); Estimated GFR 74; Glucose 76 mg/dL (83-110); Potassium 3.8 mmol/L (3.5-5.1); Sodium 137 mmol/L (136-145)
[2023-06-08] MEDS ORDERED: Carvedilol 6.25 MG TAB ONE (08:20)
[2023-06-08] MEDS ORDERED: Aspirin 81 mg Enteric Coated Tablet ONE (08:20)
[2023-06-08] MEDS ORDERED: Furosemide 40 MG (4 mL) VIAL ONE (08:20)
[2023-06-08] MEDS ORDERED: cefTRIAXone (ROCEPHIN) 2 GM VIAL ONE (08:20)
[2023-06-08] MEDS: Aspirin 81 mg Enteric Coated Tablet PO SCH (08:23)
[2023-06-08] MEDS: Furosemide 40 MG (4 mL) VIAL SLOW IVP SCH (08:23)
[2023-06-08] MEDS: Carvedilol 6.25 MG TAB PO SCH ×2 (08:23→21:08)
[2023-06-08] MEDS: Ferrous Sulfate 325 MG TAB PO SCH (08:23)
[2023-06-08] MEDS: cefTRIAXone\\ROCEPHIN 2 GM in Sodium Chloride 0.9% 100 ML IVPB SCH (08:23)
[2023-06-08] MEDS ORDERED: Sodium Chloride 0.9% 100 ML ONE (08:24)
[2023-06-08] MEDS: NIFEdipine XL 60 MG ER.TAB PO SCH (09:36)
[2023-06-08] MEDS ORDERED: Polyethylene Glycol 3350 17 GM Packet PO SCH (09:39)
[2023-06-08] MEDS ORDERED: Polyethylene Glycol 3350 17 GM Packet ONE (10:17)
[2023-06-08 15:45] VITALS: BMI 28.5
[2023-06-08] MEDS: Atorvastatin Calcium 40 MG TAB PO SCH (21:07)
[2023-06-08] MEDS ORDERED: Diclofenac 1% 50 GM TOPICAL GEL TP PRN (21:29)
[2023-06-08] MEDS: Zolpidem Tartrate 5 MG TAB PO PRN (22:32)
[2023-06-09] MEDS: Acetaminophen/Codeine 30-300mg Tablet PO PRN ×3 (05:34→21:23)
[2023-06-09] MEDS ORDERED: FLU VACC QS2023(65UP)/MF59C/PF 60 MCG/0.5 ML SYRINGE IM ONE (09:00)
[2023-06-09] MEDS: NIFEdipine XL 60 MG ER.TAB PO SCH (11:10)
[2023-06-09] MEDS: Aspirin 81 mg Enteric Coated Tablet PO SCH (11:10)
[2023-06-09] MEDS: Carvedilol 6.25 MG TAB PO SCH ×2 (11:10→21:22)
[2023-06-09] MEDS: Furosemide 40 MG (4 mL) VIAL SLOW IVP SCH (11:11)
[2023-06-09] MEDS: Polyethylene Glycol 3350 17 GM Packet PO SCH (11:11)
[2023-06-09] MEDS: Ferrous Sulfate 325 MG TAB PO SCH (11:24)
[2023-06-09] MEDS: cefTRIAXone\\ROCEPHIN 2 GM in Sodium Chloride 0.9% 100 ML IVPB SCH (11:25)
[2023-06-09] MEDS: Acetaminophen 325 MG TAB PO PRN (16:30)
[2023-06-09] MEDS: Saccharomyces boulardii 250 MG CAP PO SCH (21:22)
[2023-06-09] MEDS: Atorvastatin Calcium 40 MG TAB PO SCH (21:22)
[2023-06-09] MEDS: Senokot S 8.6-50 MG TAB PO SCH (21:22)
[2023-06-09] MEDS: Zolpidem Tartrate 5 MG TAB PO PRN (21:24)
[2023-06-09] MEDS ORDERED: hydrOXYzine 25 MG TAB PO SCH (22:15)
[2023-06-10] MEDS: cefTRIAXone\\ROCEPHIN 2 GM in Sodium Chloride 0.9% 100 ML IVPB SCH (09:06)
[2023-06-10] MEDS: Polyethylene Glycol 3350 17 GM Packet PO SCH (09:07)
[2023-06-10] MEDS: Acetaminophen/Codeine 30-300mg Tablet PO PRN ×2 (09:07→20:52)
[2023-06-10] MEDS: Aspirin 81 mg Enteric Coated Tablet PO SCH (09:08)
[2023-06-10] MEDS: NIFEdipine XL 60 MG ER.TAB PO SCH (09:08)
[2023-06-10] MEDS: Cyanocobalamin (Vitamin B-12) 1,000 MCG TAB PO SCH (09:08)
[2023-06-10] MEDS: Ferrous Sulfate 325 MG TAB PO SCH (09:08)
[2023-06-10] MEDS: Carvedilol 6.25 MG TAB PO SCH ×2 (09:08→20:53)
[2023-06-10] MEDS: Senokot S 8.6-50 MG TAB PO SCH ×2 (09:08→20:51)
[2023-06-10] MEDS: Furosemide 40 MG (4 mL) VIAL SLOW IVP SCH (09:09)
[2023-06-10] MEDS ORDERED: Magnesium Citrate 300 ML BOT PO SCH (09:15)
[2023-06-10] MEDS ORDERED: diphenhydrAMINE 25 MG CAP PO PRN (12:59)
[2023-06-10] MEDS ORDERED: Fioricet 325/50/40 mg Tablet PO SCH (13:15)
[2023-06-10] MEDS: CefTAZidime\\FORTAZ 1 GM in Sodium Chloride 0.9% 100 ML IVPB SCH (18:43)
[2023-06-10] MEDS: Atorvastatin Calcium 40 MG TAB PO SCH (20:51)
[2023-06-10] MEDS: Saccharomyces boulardii 250 MG CAP PO SCH (20:51)
[2023-06-10] MEDS: Zolpidem Tartrate 5 MG TAB PO PRN (20:51)
[2023-06-10] MEDS: hydrOXYzine 25 MG TAB PO PRN (20:52)
[2023-06-11] MEDS: CefTAZidime\\FORTAZ 1 GM in Sodium Chloride 0.9% 100 ML IVPB SCH ×3 (02:29→17:39)
[2023-06-11 05:43] LABS: #Eosinphils 0.4 thou/uL (0.0-0.7); #Monocytes 0.8 thou/uL (0.11-0.59); #Neutrophils 3.3 thou/uL (1.40-6.50); %Basophils 0.7 % (0.0-1.0); %Eosinophils 6.3 % (0.0-10.0); %Lymphocytes 23.4 % (21.0-51.0); %Monocytes 13.1 % (0.0-10.0); Hematocrit 25.5 % (36.0-47.0); Hemoglobin 7.6 g/dL (12.0-16.0); Mean Corpuscular HGB CONC 29.8 g/dL (32.0-36.0); Mean Corpuscular Hemoglobin 26.7 pg (27.0-31.0); Mean Corpuscular Volume 89.5 fl (78.0-98.0); Mean Platelet Volume 9.8 fL (7.4-10.4); Platelet Count 288 10x3/uL (130-400); RBC Distribution Width 17.5 % (11.5-14.5); Red Blood Cell (RBC) Count 2.85 mill/uL (4.20-5.40); White Blood Cell (WBC) Count 5.9 10x3/uL (4.8-10.8)
[2023-06-11 06:04] LABS: Anion Gap 10 mmol/L (10-20); BUN (Urea Nitrogen) 14 mg/dL (9.8-20.1); Calc. Creatinine Clearance 64 mL/min (70-130); Calcium 7.8 mg/dL (7.8-10.44); Carbon Dioxide 29 mmol/L (23-31); Chloride 104 mmol/L (98-107); Estimated GFR 66; Glucose 82 mg/dL (83-110); Potassium 3.8 mmol/L (3.5-5.1); Sodium 139 mmol/L (136-145)
[2023-06-11] MEDS: Aspirin 81 mg Enteric Coated Tablet PO SCH (10:07)
[2023-06-11] MEDS: Cyanocobalamin (Vitamin B-12) 1,000 MCG TAB PO SCH (10:07)
[2023-06-11] MEDS: NIFEdipine XL 60 MG ER.TAB PO SCH (10:07)
[2023-06-11] MEDS: Carvedilol 6.25 MG TAB PO SCH ×2 (10:07→21:29)
[2023-06-11] MEDS: Furosemide 40 MG (4 mL) VIAL SLOW IVP SCH (10:08)
[2023-06-11] MEDS: Senokot S 8.6-50 MG TAB PO SCH ×2 (10:08→21:30)
[2023-06-11] MEDS: Ferrous Sulfate 325 MG TAB PO SCH (10:08)
[2023-06-11] MEDS: Polyethylene Glycol 3350 17 GM Packet PO SCH (10:09)
[2023-06-11] MEDS ORDERED: Ketorolac Tromethamine 30 MG (1 mL) VIAL IVP SCH (11:30)
[2023-06-11] MEDS: Acetaminophen 325 MG TAB PO PRN (14:52)
[2023-06-11] MEDS ORDERED: Furosemide 40 MG (4 mL) VIAL SLOW IVP SCH (16:00)
[2023-06-11] MEDS ORDERED: Loratadine 10 MG TAB PO PRN (19:16)
[2023-06-11] MEDS: hydrOXYzine 25 MG TAB PO PRN (21:28)
[2023-06-11] MEDS: Zolpidem Tartrate 5 MG TAB PO PRN (21:29)
[2023-06-11] MEDS: Atorvastatin Calcium 40 MG TAB PO SCH (21:30)
[2023-06-11] MEDS: Saccharomyces boulardii 250 MG CAP PO SCH (21:30)
[2023-06-11] MEDS: Ketorolac Tromethamine 30 MG (1 mL) VIAL IVP PRN (21:31)
[2023-06-11] MEDS: Acetaminophen/Codeine 30-300mg Tablet PO PRN (23:48)
[2023-06-12] MEDS: CefTAZidime\\FORTAZ 1 GM in Sodium Chloride 0.9% 100 ML IVPB SCH ×3 (03:14→17:39)
[2023-06-12 04:34] LABS: #Eosinphils 0.5 thou/uL (0.0-0.7); #Monocytes 0.8 thou/uL (0.11-0.59); #Neutrophils 5.7 thou/uL (1.40-6.50); %Basophils 0.5 % (0.0-1.0); %Eosinophils 5.4 % (0.0-10.0); %Lymphocytes 18.2 % (21.0-51.0); %Monocytes 8.7 % (0.0-10.0); %Neutrophils 66.5 % (42.0-75.0); Hematocrit 25.7 % (36.0-47.0); Hemoglobin 7.8 g/dL (12.0-16.0); Mean Corpuscular HGB CONC 30.4 g/dL (32.0-36.0); Mean Corpuscular Hemoglobin 27.3 pg (27.0-31.0); Mean Corpuscular Volume 89.9 fl (78.0-98.0); Platelet Count 299 10x3/uL (130-400); RBC Distribution Width 18.1 % (11.5-14.5); Red Blood Cell (RBC) Count 2.86 mill/uL (4.20-5.40); White Blood Cell (WBC) Count 8.6 10x3/uL (4.8-10.8)
[2023-06-12 04:56] LABS: Anion Gap 9 mmol/L (10-20); BUN (Urea Nitrogen) 20 mg/dL (9.8-20.1); Calc. Creatinine Clearance 54 mL/min (70-130); Calcium 7.8 mg/dL (7.8-10.44); Carbon Dioxide 29 mmol/L (23-31); Chloride 102 mmol/L (98-107); Estimated GFR 54; Glucose 84 mg/dL (83-110); Potassium 3.8 mmol/L (3.5-5.1); Sodium 136 mmol/L (136-145)
[2023-06-12] MEDS: Aspirin 81 mg Enteric Coated Tablet PO SCH (08:37)
[2023-06-12] MEDS: Carvedilol 6.25 MG TAB PO SCH ×2 (08:37→20:15)
[2023-06-12] MEDS: Cyanocobalamin (Vitamin B-12) 1,000 MCG TAB PO SCH (08:38)
[2023-06-12] MEDS: Ferrous Sulfate 325 MG TAB PO SCH (08:38)
[2023-06-12] MEDS: Furosemide 40 MG (4 mL) VIAL SLOW IVP SCH ×2 (08:38→13:47)
[2023-06-12] MEDS: NIFEdipine XL 60 MG ER.TAB PO SCH (08:38)
[2023-06-12] MEDS: Senokot S 8.6-50 MG TAB PO SCH ×2 (08:38→20:15)
[2023-06-12] MEDS: Polyethylene Glycol 3350 17 GM Packet PO SCH (08:39)
[2023-06-12] MEDS: hydrOXYzine 25 MG TAB PO PRN (09:41)
[2023-06-12] MEDS: Ketorolac Tromethamine 30 MG (1 mL) VIAL IVP PRN (09:41)
[2023-06-12] MEDS: Acetaminophen/Codeine 30-300mg Tablet PO PRN ×2 (13:47→20:16)
[2023-06-12] MEDS ORDERED: Iron, Sodium Ferric Gluconate 250 MG in Sodium Chloride 0.9% 250 ML 250 ML IVPB SCH (15:15)
[2023-06-12] MEDS ORDERED: Iron Sucrose Complex 200 MG in Sodium Chloride 0.9% 100 ML IVPB SCH (15:15)
[2023-06-12] MEDS: Saccharomyces boulardii 250 MG CAP PO SCH (20:15)
[2023-06-12] MEDS: Atorvastatin Calcium 40 MG TAB PO SCH (20:15)
[2023-06-12] MEDS: Zolpidem Tartrate 5 MG TAB PO PRN (23:34)
[2023-06-13] MEDS: CefTAZidime\\FORTAZ 1 GM in Sodium Chloride 0.9% 100 ML IVPB SCH ×3 (03:31→17:40)
[2023-06-13 05:05] LABS: #Basophils 0.1 thou/uL (0.0-0.2); #Eosinphils 0.4 thou/uL (0.0-0.7); #Monocytes 0.8 thou/uL (0.11-0.59); #Neutrophils 6.9 thou/uL (1.40-6.50); %Basophils 0.5 % (0.0-1.0); %Eosinophils 4.2 % (0.0-10.0); %Lymphocytes 15.8 % (21.0-51.0); %Monocytes 8.3 % (0.0-10.0); %Neutrophils 70.5 % (42.0-75.0); Hematocrit 26.6 % (36.0-47.0); Hemoglobin 8.1 g/dL (12.0-16.0); Mean Corpuscular HGB CONC 30.5 g/dL (32.0-36.0); Mean Corpuscular Hemoglobin 27.6 pg (27.0-31.0); Mean Corpuscular Volume 90.8 fl (78.0-98.0); Mean Platelet Volume 10.1 fL (7.4-10.4); Platelet Count 281 10x3/uL (130-400); RBC Distribution Width 19.1 % (11.5-14.5); Red Blood Cell (RBC) Count 2.93 mill/uL (4.20-5.40); White Blood Cell (WBC) Count 9.7 10x3/uL (4.8-10.8)
[2023-06-13 05:47] LABS: Anion Gap 11 mmol/L (10-20); BUN (Urea Nitrogen) 22 mg/dL (9.8-20.1); Calc. Creatinine Clearance 63 mL/min (70-130); Calcium 8.3 mg/dL (7.8-10.44); Carbon Dioxide 28 mmol/L (23-31); Chloride 101 mmol/L (98-107); Estimated GFR 66; Glucose 83 mg/dL (83-110); Magnesium 2.4 mg/dL (1.6-2.6); Potassium 3.5 mmol/L (3.5-5.1); Sodium 136 mmol/L (136-145)
[2023-06-13] MEDS: Aspirin 81 mg Enteric Coated Tablet PO SCH (09:01)
[2023-06-13] MEDS: Ferrous Sulfate 325 MG TAB PO SCH (09:01)
[2023-06-13] MEDS: NIFEdipine XL 60 MG ER.TAB PO SCH (09:01)
[2023-06-13] MEDS: Cyanocobalamin (Vitamin B-12) 1,000 MCG TAB PO SCH (09:02)
[2023-06-13] MEDS: Furosemide 40 MG TAB PO SCH (09:02)
[2023-06-13] MEDS: Polyethylene Glycol 3350 17 GM Packet PO SCH (09:02)
[2023-06-13] MEDS: Carvedilol 6.25 MG TAB PO SCH ×2 (09:02→20:17)
[2023-06-13] MEDS: Senokot S 8.6-50 MG TAB PO SCH ×2 (09:03→20:19)
[2023-06-13] MEDS ORDERED: hydrOXYzine 25 MG TAB PO PRN (09:52)
[2023-06-13] MEDS: Acetaminophen/Codeine 30-300mg Tablet PO PRN ×2 (10:04→20:18)
[2023-06-13] MEDS: hydrOXYzine 25 MG TAB PO PRN (10:06)
[2023-06-13] MEDS: Ketorolac Tromethamine 30 MG (1 mL) VIAL IVP PRN (14:28)
[2023-06-13] MEDS ORDERED: Melatonin 3 MG TAB PO PRN (19:50)
[2023-06-13] MEDS: Atorvastatin Calcium 40 MG TAB PO SCH (20:18)
[2023-06-13] MEDS: Zolpidem Tartrate 5 MG TAB PO PRN (20:18)
[2023-06-13] MEDS: Saccharomyces boulardii 250 MG CAP PO SCH (20:19)
[2023-06-14] MEDS: CefTAZidime\\FORTAZ 1 GM in Sodium Chloride 0.9% 100 ML IVPB SCH ×3 (02:28→17:51)
[2023-06-14] MEDS: Acetaminophen/Codeine 30-300mg Tablet PO PRN ×2 (03:50→14:09)
[2023-06-14 04:26] LABS: #Basophils 0.1 thou/uL (0.0-0.2); #Eosinphils 0.4 thou/uL (0.0-0.7); #Monocytes 0.6 thou/uL (0.11-0.59); #Neutrophils 6.8 thou/uL (1.40-6.50); %Basophils 0.5 % (0.0-1.0); %Eosinophils 4.2 % (0.0-10.0); %Lymphocytes 14.9 % (21.0-51.0); %Monocytes 6.5 % (0.0-10.0); %Neutrophils 73.4 % (42.0-75.0); Hematocrit 27.7 % (36.0-47.0); Hemoglobin 8.3 g/dL (12.0-16.0); Mean Corpuscular Hemoglobin 27.9 pg (27.0-31.0); Mean Platelet Volume 10.5 fL (7.4-10.4); Platelet Count 268 10x3/uL (130-400); RBC Distribution Width 19.9 % (11.5-14.5); Red Blood Cell (RBC) Count 2.98 mill/uL (4.20-5.40); White Blood Cell (WBC) Count 9.3 10x3/uL (4.8-10.8)
[2023-06-14 05:02] LABS: Anion Gap 11 mmol/L (10-20); BUN (Urea Nitrogen) 22 mg/dL (9.8-20.1); Calc. Creatinine Clearance 50 mL/min (70-130); Calcium 8.2 mg/dL (7.8-10.44); Carbon Dioxide 26 mmol/L (23-31); Chloride 104 mmol/L (98-107); Estimated GFR 54; Glucose 113 mg/dL (83-110); Potassium 3.4 mmol/L (3.5-5.1); Sodium 138 mmol/L (136-145)
[2023-06-14] MEDS ORDERED: Potassium Chloride 20 MEQ TAB PO SCH (08:00)
[2023-06-14] MEDS: Polyethylene Glycol 3350 17 GM Packet PO SCH (08:48)
[2023-06-14] MEDS: Ferrous Sulfate 325 MG TAB PO SCH (08:49)
[2023-06-14] MEDS: Carvedilol 6.25 MG TAB PO SCH ×2 (08:49→22:06)
[2023-06-14] MEDS: Aspirin 81 mg Enteric Coated Tablet PO SCH (08:49)
[2023-06-14] MEDS: Furosemide 40 MG TAB PO SCH (08:49)
[2023-06-14] MEDS: NIFEdipine XL 60 MG ER.TAB PO SCH (08:49)
[2023-06-14] MEDS: Senokot S 8.6-50 MG TAB PO SCH ×2 (08:49→22:06)
[2023-06-14] MEDS: Cyanocobalamin (Vitamin B-12) 1,000 MCG TAB PO SCH (08:49)
[2023-06-14] MEDS: hydrOXYzine 25 MG TAB PO PRN (08:57)
[2023-06-14] MEDS: Acetaminophen 325 MG TAB PO PRN ×2 (17:51→22:07)
[2023-06-14] MEDS: Atorvastatin Calcium 40 MG TAB PO SCH (22:06)
[2023-06-14] MEDS: Saccharomyces boulardii 250 MG CAP PO SCH (22:06)
[2023-06-14] MEDS: Zolpidem Tartrate 5 MG TAB PO PRN (22:13)
[2023-06-15] MEDS: CefTAZidime\\FORTAZ 1 GM in Sodium Chloride 0.9% 100 ML IVPB SCH ×2 (03:10→08:46)
[2023-06-15] MEDS: Acetaminophen/Codeine 30-300mg Tablet PO PRN ×3 (04:28→20:04)
[2023-06-15 05:35] LABS: #Eosinphils 0.4 thou/uL (0.0-0.7); #Monocytes 0.5 thou/uL (0.11-0.59); #Neutrophils 4.5 thou/uL (1.40-6.50); %Basophils 0.6 % (0.0-1.0); %Eosinophils 5.7 % (0.0-10.0); %Lymphocytes 16.9 % (21.0-51.0); %Monocytes 8.2 % (0.0-10.0); %Neutrophils 68.1 % (42.0-75.0); Hematocrit 26.5 % (36.0-47.0); Hemoglobin 8.1 g/dL (12.0-16.0); Mean Corpuscular HGB CONC 30.6 g/dL (32.0-36.0); Mean Corpuscular Volume 91.7 fl (78.0-98.0); Mean Platelet Volume 10.7 fL (7.4-10.4); Platelet Count 235 10x3/uL (130-400); RBC Distribution Width 20.3 % (11.5-14.5); Red Blood Cell (RBC) Count 2.89 mill/uL (4.20-5.40); White Blood Cell (WBC) Count 6.6 10x3/uL (4.8-10.8)
[2023-06-15 06:06] LABS: Anion Gap 11 mmol/L (10-20); BUN (Urea Nitrogen) 23 mg/dL (9.8-20.1); Calc. Creatinine Clearance 61 mL/min (70-130); Calcium 8.3 mg/dL (7.8-10.44); Carbon Dioxide 28 mmol/L (23-31); Chloride 104 mmol/L (98-107); Estimated GFR 68; Glucose 102 mg/dL (83-110); Potassium 3.6 mmol/L (3.5-5.1); Sodium 139 mmol/L (136-145)
[2023-06-15] MEDS: Ferrous Sulfate 325 MG TAB PO SCH (08:45)
[2023-06-15] MEDS: Senokot S 8.6-50 MG TAB PO SCH ×2 (08:45→20:02)
[2023-06-15] MEDS: NIFEdipine XL 60 MG ER.TAB PO SCH (08:46)
[2023-06-15] MEDS: Polyethylene Glycol 3350 17 GM Packet PO SCH (08:46)
[2023-06-15] MEDS: Cyanocobalamin (Vitamin B-12) 1,000 MCG TAB PO SCH (08:46)
[2023-06-15] MEDS: Aspirin 81 mg Enteric Coated Tablet PO SCH (08:46)
[2023-06-15] MEDS: Furosemide 40 MG TAB PO SCH (08:46)
[2023-06-15] MEDS: Carvedilol 6.25 MG TAB PO SCH ×2 (08:46→20:03)
[2023-06-15] MEDS: hydrOXYzine 25 MG TAB PO PRN ×2 (14:19→20:03)
[2023-06-15] MEDS: Zolpidem Tartrate 5 MG TAB PO PRN (20:03)
[2023-06-15] MEDS: Atorvastatin Calcium 40 MG TAB PO SCH (20:03)
[2023-06-15] MEDS: Saccharomyces boulardii 250 MG CAP PO SCH (20:03)
[2023-06-16] MEDS: Ferrous Sulfate 325 MG TAB PO SCH (09:18)
[2023-06-16] MEDS: Aspirin 81 mg Enteric Coated Tablet PO SCH (09:18)
[2023-06-16] MEDS: Carvedilol 6.25 MG TAB PO SCH (09:18)
[2023-06-16] MEDS: Furosemide 40 MG TAB PO SCH (09:18)
[2023-06-16] MEDS: Polyethylene Glycol 3350 17 GM Packet PO SCH (09:19)
[2023-06-16] MEDS: NIFEdipine XL 60 MG ER.TAB PO SCH (09:19)
[2023-06-16] MEDS: Cyanocobalamin (Vitamin B-12) 1,000 MCG TAB PO SCH (09:19)
[2023-06-16] MEDS: Acetaminophen/Codeine 30-300mg Tablet PO PRN (09:20)
[2023-06-16] MEDS: Senokot S 8.6-50 MG TAB PO SCH (09:20)
[2023-06-16] MEDS: hydrOXYzine 25 MG TAB PO PRN ×2 (09:32→16:26)
[2023-06-16 12:56] VITALS: TEMP 98.6
[2023-06-16 16:29] VITALS: BP 142/66
[2023-06-17] MEDS ORDERED: FLU VACC QS2023(65UP)/MF59C/PF 60 MCG/0.5 ML SYRINGE IM ONE (09:00)
== END 2023-06-16 16:58 | DRG 280 ==
LOC: SUATTDRO 15:23 → ERS 15:23 → ERHOLD 20:40 → 2NO 06-08 15:24 → OBSVTOIN 06-09 13:29
PROVIDERS: ADMIT Family Medicine; ATTEND Internal Medicine
DX: I11.0 Hypertensive heart disease with heart failure (principal); I50.23 Acute on chronic systolic (congestive) heart failure; I21.4 Non-ST elevation (NSTEMI) myocardial infarction; N39.0 Urinary tract infection, site not specified; M19.90 Unspecified osteoarthritis, unspecified site; D64.9 Anemia, unspecified; R32 Unspecified urinary incontinence; F10.90 Alcohol use, unspecified, uncomplicated; R53.81 Other malaise; I25.10 Atherosclerotic heart disease of native coronary artery without angina pectoris; K59.00 Constipation, unspecified; E87.6 Hypokalemia; Z88.2 Allergy status to sulfonamides; Z88.8 Allergy status to other drugs, medicaments and biological substances; Z79.899 Other long term (current) drug therapy; Z79.82 Long term (current) use of aspirin; Z90.710 Acquired absence of both cervix and uterus; Z90.89 Acquired absence of other organs; Z98.890 Other specified postprocedural states
CPT/HCPCS: 36415; 71045; 80048; 80053; 81001; 83735; 83880; 84484; 85025; 87040; 93005; 96372; 96374; 96375; 96376; 97139; G0378; J0696; J0713; J1650; J1885; J1940; J2916; J3490; J7050

== ENCOUNTER 2023-07-03 10:03 | Outpatient (CLI) | payer MEDICARE | END 2023-07-03 10:04 | disposition home or self-care (01) | LOC: BICRAD 10:03 | PROVIDERS: ATTEND Internal Medicine Critical Care Medicine | DX: R06.00 Dyspnea, unspecified (principal) | CPT/HCPCS: 71046 ==